=== PATIENT | female | born 1960 | race Caucasian/White ===

== ENCOUNTER → 2017-10-13 10:09 | Outpatient (CLI) | payer OTHER, SELFPAY ==
[2017-10-13 13:32] LABS: Free T4, Direct Thyroxine 0.72 ng/dL (0.78-2.19)
[2017-10-13 13:46] LABS: Thyroid Stimulating Hormone 0.05 uIU/mL (0.47-4.68)
[2017-10-13 16:32] LABS: Calcium 10.3 mg/dL (8.4-10.2)
== END ==
PROVIDERS: Nurse Practitioner Gerontology; Family Provider Naturopath; PCP Naturopath; Visit Provider Naturopath
DX: E03.9 Hypothyroidism, unspecified (principal)
CPT/HCPCS: 36415; 82310; 84146; 84439; 84443; 84481

== ENCOUNTER → 2017-11-11 13:07 | Outpatient (CLI) | payer OTHER, SELFPAY | PROVIDERS: Family Provider Naturopath; PCP Naturopath; Visit Provider Nurse Practitioner Obstetrics & Gynecology | DX: Z01.411 Encounter for gynecological examination (general) (routine) with abnormal findings (principal); N64.3 Galactorrhea not associated with childbirth; N95.1 Menopausal and female climacteric states | CPT/HCPCS: 36415; 83001 ==

== ENCOUNTER → 2018-03-17 09:00 | Outpatient (CLI) | payer OTHER, SELFPAY | PROVIDERS: Family Provider Naturopath; PCP Naturopath | DX: Z23 Encounter for immunization (principal) | CPT/HCPCS: 90471; 90686 ==

== ENCOUNTER → 2018-08-05 09:23 | Outpatient (CLI) | payer OTHER, SELFPAY ==
--- NOTE | 2018-08-05 | DI.US.S_ITS ---
ULTRASOUND OF LEFT BREAST: 08/05/2018 CLINICAL: Nipple discharge, left breast, not bloody. Comparison is made to exams dated: 08/05/2018 mammogram, 07/07/2017 mammogram, 05/15/2016 mammogram, 05/14/2015 mammogram, 05/02/2014 mammogram, and 04/28/2013 mammogram - [facility]. Real-time ultrasound of the left breast was performed on the areas of interest. Conard scale images of the real-time examination were reviewed. IMPRESSION: NEGATIVE There is no sonographic evidence of malignancy. There is no mammographic or sonographic abnormality seen in the left breast to correspond with the non-bloody discharge from the nipple in the sub-areolar depth, however, clinical followup is recommended. A 1 year screening mammogram is recommended. This exam was interpreted at Station ID: [id number]. Electronically Signed By: Agata kunz/:08/05/2018 16:31:43 letter sent: Clinical Evaluation Ultrasound BI-RADS: 1 Negative
--- NOTE | 2018-08-05 | DI.MG.S_ITS ---
BILATERAL DIGITAL DIAGNOSTIC MAMMOGRAM 3D/2D: 08/05/2018 CLINICAL: Bilateral nipple discharge. Comparison is made to exams dated: 07/07/2017 mammogram, 05/15/2016 mammogram, and 05/14/2015 mammogram - [facility]. The tissue of both breasts is heterogeneously dense. This may lower the sensitivity of mammography. No significant masses, calcifications, or other findings are seen in either breast. IMPRESSION: INCOMPLETE: NEEDS ADDITIONAL IMAGING EVALUATION There is no mammographic abnormality seen in either breast to correspond with the non-bloody discharge from the nipple, however, targeted ultrasound of the bilateral breasts is recommended and will be performed immediately following this exam. This exam was interpreted at Station ID: [id number]. NOTE: For mammograms, a report in lay terms will be sent to the patient. Approximately 15% of breast malignancies will not be visualized mammographically. In the management of a palpable breast mass, a negative mammogram must not discourage biopsy of a clinically suspicious lesion. Electronically Signed By: Agata Larry M.D. lk/:08/05/2018 10:13:55 ACR BI-RADS Category 0: Incomplete 3340F
--- NOTE | 2018-08-05 | DI.US.S_ITS ---
ULTRASOUND OF RIGHT BREAST: 08/05/2018 CLINICAL: Nipple discharge, right breast, not bloody. Comparison is made to exams dated: 08/05/2018 mammogram, 07/07/2017 mammogram, 05/15/2016 mammogram, 05/14/2015 mammogram, 05/02/2014 mammogram, and 04/28/2013 mammogram - [facility]. Real-time ultrasound of the right breast was performed on the areas of interest. Conrad scale images of the real-time examination were reviewed. IMPRESSION: NEGATIVE There is no sonographic evidence of malignancy. There is no mammographic or sonographic abnormality seen in the right breast to correspond with the non-bloody discharge from the nipple in the sub-areolar depth, however, clinical followup is recommended. A 1 year screening mammogram is recommended. This exam was interpreted at Station ID: [id number]. Electronically Signed By: Agata kunz/kaitlyn:08/05/2018 16:32:15 letter sent: Clinical Evaluation Ultrasound BI-RADS: 1 Negative
== END ==
PROVIDERS: PCP Naturopath; Visit Provider Naturopath
DX: R92.8 Other abnormal and inconclusive findings on diagnostic imaging of breast (principal); N64.52 Nipple discharge
CPT/HCPCS: 76642; 77066; G0279

== ENCOUNTER → 2019-06-05 10:42 | Outpatient (CLI) | payer OTHER, SELFPAY ==
[2019-06-05 12:49] LABS: Add Manual Diff / Slide Review NO; Basophils Absolute Auto 0 /uL (0-100); Basophils Percent Auto 0.9 % (0-2); Eosinophils Absolute Auto 100 /uL (0-450); Eosinophils Percent Auto 1.8 % (2-4); Hematocrit 40.3 % (36-46); Hemoglobin 14.2 g/dL (12.0-16.0); Lymphocytes Absolute Auto 1600 /uL (1100-4500); Lymphocytes Percent Auto 33.8 % (25-40); Mean Corpuscular HGB Conc 35.2 % (30-36); Mean Corpuscular Volume 93.9 fL (80-100); Monocytes Absolute Auto 500 /uL (0-900); Monocytes Percent Auto 10.2 % (3-14); Neutrophils Absolute Auto 2500 /uL (1500-7000); Neutrophils Percent Auto 53.3 % (50-75); Platelet Count 296 X10^3/uL (150-400); Red Blood Cell Count 4.29 X10^6/uL (4.0-5.2); Red Cell Distribution Width 13.3 % (11.6-14.8); White Blood Cell Count 4.7 X10^3/uL (4.5-11.0)
[2019-06-05 13:46] LABS: Alanine Aminotransferase 16 IU/L (<35); Albumin 4.6 g/dL (3.5-5.0); Albumin Globulin Ratio 1.5 (1.0-2.8); Alkaline Phosphatase 77 U/L (38-126); Aspartate Aminotransferase 24 IU/L (14-36); BUN Creatinine Ratio 21.3 (6-22); Bilirubin Total 0.5 mg/dL (0.2-1.3); Blood Urea Nitrogen 17 mg/dL (7-17); Calcium 10.3 mg/dL (8.4-10.2); Carbon Dioxide 29 mmol/L (22-32); Chloride 101 mmol/L (98-107); Cholesterol 256 mg/dL (140-199); Estimated Glomerular Filt Rate > 60.0 mL/min (>60); Glucose 114 mg/dL (70-100); HDL Cholesterol 59 mg/dL (40-60); HEMOLYSIS < 15 (0-50); LDL Cholesterol Calculated 152 mg/dL (<100); Potassium 4.5 mmol/L (3.4-5.1); Sodium 141 mmol/L (137-145); Total Protein 7.6 g/dL (6.3-8.2); Triglycerides 225 mg/dL (35-150)
[2019-06-05 13:55] LABS: Prolactin 36.9 ng/mL (3.0-18.6)
[2019-06-05 13:56] LABS: Free T3, Triiodothyronine Free 3.42 pg/mL (2.77-5.27)
[2019-06-05 14:10] LABS: Thyroid Stimulating Hormone 0.43 uIU/mL (0.47-4.68)
== END ==
PROVIDERS: PCP Naturopath; Visit Provider Naturopath
DX: Z00.00 Encounter for general adult medical examination without abnormal findings (principal); E03.9 Hypothyroidism, unspecified; E22.1 Hyperprolactinemia; D70.9 Neutropenia, unspecified
CPT/HCPCS: 36415; 80053; 80061; 84146; 84436; 84443; 84481; 85025; 85610

== ENCOUNTER → 2019-06-07 12:01 | Outpatient (CLI) | payer OTHER, SELFPAY ==
--- NOTE | 2019-06-07 | DI.MRI.S_ITS ---
PROCEDURE: MR BRAIN (PITUITARY) WWO CON INDICATIONS: Hyperprolactinemia TECHNIQUE: Noncontrast sagittal and axial FLAIR, axial gradient echo, axial diffusion and ADC through the brain. Thin-slice sagittal and coronal T1 spin echo, coronal T2 fast spin echo through the pituitary. After the administration contrast, optional dynamic coronal T1 spin echo, thin-slice coronal and sagittal T1 spin echo images through the pituitary fossa; axial T1 spin echo with fat saturation through the brain. COMPARISON: None. FINDINGS: Image quality: Excellent. Pituitary Gland: The pituitary gland is normal in size, and the pituitary stalk is not deviated. There is no sign of macroadenoma, and both morphologically and through the phases of dynamic contrast enhancement no identifiable microadenoma within the gland bilaterally could be located. CSF Spaces: Ventricles are normal in size and shape. Basal cisterns are patent. No extra-axial fluid collections. Brain: No intracranial bleeds or mass effects. No abnormal intracranial enhancement. Conrad-white matter interface is intact. Diffusion weighted images demonstrate no acute ischemic insults. Brainstem is normal. Normal intravascular flow voids are present. Skull and face: Calvarial marrow is normal in signal. Orbits appear normal. Sinuses: Sinuses and mastoids are clear. IMPRESSION: Normal pituitary gland study without and with contrast including utilizing high-resolution dynamic contrast enhanced imaging. The patient reports significantly elevated prolactin level, and currently etiology for that abnormality is not yet found Dictated by: Betito Kumar M.D. on 06/07/2019 at 14:46 Approved by: Betito Kumar M.D. on 06/07/2019 at 14:47
== END ==
PROVIDERS: PCP Naturopath; Visit Provider Naturopath
DX: E22.1 Hyperprolactinemia (principal); E88.81 Metabolic syndrome and other insulin resistance
CPT/HCPCS: 36415; 70553; 83036; 83970

== ENCOUNTER → 2019-06-07 13:27 | Outpatient (CLI) | payer OTHER, SELFPAY ==
[2019-06-07 15:15] LABS: Hemoglobin A1C% w Est Avg Glu 5.4 % (4.0-6.0)
[2019-06-10 15:09] LABS: Parathyroid Hormone Int 50 pg/mL (14-64)
== END ==
PROVIDERS: PCP Naturopath; Visit Provider Naturopath
DX: E22.1 Hyperprolactinemia (principal); E88.81 Metabolic syndrome and other insulin resistance
CPT/HCPCS: 36415; 83036; 83970

== ENCOUNTER → 2019-06-26 15:05 | Outpatient (CLI) | payer OTHER, SELFPAY ==
[2019-06-29 12:52] LABS: Mitogen-NIL > 10.00 IU/mL; NIL 0.04 IU/mL; QuantiFERON TB NEGATIVE (Negative); TB1-NIL < 0.01 IU/mL; TB2-NIL < 0.01 IU/mL
== END ==
PROVIDERS: PCP Naturopath; Visit Provider Naturopath
DX: Z11.1 Encounter for screening for respiratory tuberculosis (principal)
CPT/HCPCS: 36415; 86480

== ENCOUNTER 2019-07-29 09:22 | Emergency (ER) | payer OTHER, SELFPAY ==
[2019-07-29 09:25] VITALS: BP 189/97; PULSE 112; RESP 18; TEMP 36.6; O2SAT 98; BMI 25.0
--- NOTE | 2019-07-29 09:43 | ED_ITS ---
HPI - Wound/Laceration General Chief Complaint: Wound/Laceration Stated Complaint: hit head on Time Seen by Provider: 07/29/19 09:42 Source: patient Mode of arrival: Ambulatory Limitations: no limitations History of Present Illness HPI narrative: 59-year-old female nonsmoker without significant contributing medical history presents for evaluation of a laceration above her right eyebrow that was suffered during a mechanical fall 3-4 days ago. She states that she was walking and tripped on an uneven sidewalk. She reports a full recall of the event, denies any loss of consciousness, nausea or vomiting. She denies any focal neurologic findings such as numbness, tingling or weakness. She states that she was hoping that this deep irregular laceration would just get better on its own but when it started swelling a bit she decided to come get seen. Onset (ago): day(s) Location: face Place: outdoors Patient tetanus UTD: Yes Context: accidental Associated symptoms: none Related Data Home Medications Medication Instructions Recorded Confirmed CA PANTOTHENATE/FOLIC ACID/VIT 1 tab PO Q DAY #0 04/08/11 (MULTIVITAMIN) Previous Rx's Medication Instructions Recorded celecoxib 200 mg capsule 200 mg PO DAILY #90 cap 10/05/18 cephalexin [Keflex] 500 mg PO QID 7 Days #28 cap 07/29/19 Review of Systems Constitutional Constitutional: Denies chills, Denies fatigue, Denies fever(s), Denies frequent falls, Denies lethargy and Denies weakness Eyes Eyes: Denies change in vision, Denies eye discharge, Denies irritation and Denies loss of vision ENT Ears, Nose, Mouth, and Throat: Denies change in voice, Denies dizziness, Denies neck pain, Denies sore throat and Denies throat swelling Cardiovascular Cardiovascular: Denies chest pain, Denies irregular heart rhythm, Denies lightheadedness, Denies palpitations, Denies dyspnea, Denies dyspnea on exertion and Denies orthopnea Respiratory Respiratory: Denies cough, Denies dyspnea, Denies dyspnea on exertion and Denies wheezing Gastrointestinal Gastrointestinal: Denies abdominal pain, Denies change in bowel habits, Denies diarrhea, Denies nausea and Denies vomiting Genitourinary Genitourinary: Denies hematuria, Denies flank pain, Denies urinary incontinence and Denies urinary urgency Musculoskeletal Musculoskeletal: Denies back pain, Denies muscle weakness, Denies neck pain, Denies numbness and Denies tingling Integumentary/Breasts Skin/Breast: Denies pruritus, Denies erythema, Denies rash, Reports skin pain, Reports skin swelling and Reports wounds Neurologic Neurologic: Denies behavioral changes, Denies confusion, Denies dizziness, Denies frequent falls, Denies loss of vision, Denies numbness, Denies tingling and Denies weakness Psychiatric Psychiatric: Denies anxiety, Denies behavioral changes, Denies confusion, Denies depression, Denies homicidal ideation and Denies suicidal ideation Endocrine Endocrine: Denies fatigue, Denies flushing and Denies palpitations Hematologic/Lymphatic Hematologic/Lymphatic: Denies easy bruising Allergic/Immunologic Allergic/Immunologic: Denies urticaria, Denies throat swelling and Denies wheezing Patient History Family History Father Hypercholesterolemia CLL (chronic lymphocytic leukemia) Grandfather Heart disease Grandmother Heart disease Mother Age: 74 CLL (chronic lymphocytic leukemia) Uterine fibroid Diabetes mellitus Sister Age: 51 Mental health problem Anxiety Social History Smoking Status: Never smoker Smoking Status: Never smoker alcohol intake frequency: holidays/special occasions only Substance Use Type: does not use Exam Narrative Exam Narrative: GENERAL: [59] year old patient appears stated age. Well- nourished, well-developed patient, in mild distress. GCS 15 HEAD: 3cm irregular laceration, clearly a few days old, no active bleeding. Moderate surrounding swelling without erythema. No depressed skull fracture. EYES: Pupils equal round and reactive. Extraocular motions intact. No scleral icterus. No injection or drainage. ENT: Nose without bleeding, purulent drainage. Throat without erythema, tonsillar hypertrophy or exudate. Airway patent. NECK: Trachea midline. Non tender CARDIOVASCULAR: Regular rate and rhythm without murmurs, gallops, or rubs. RESPIRATORY: Clear to auscultation. Breath sounds equal bilaterally. No wheezes, rales, or rhonchi. GASTROINTESTINAL: Abdomen soft, non-tender, nondistended. EXTREMITIES: No edema or joint tenderness. BACK: Nontender without deformity or crepitance. No flank tenderness. NEURO: AOx3. SKIN: No rash or erythema of visible areas Initial Vital Signs Initial Vital Signs: Vital Signs Temperature 97.9 F 07/29/19 09:25 Pulse Rate 112 H 07/29/19 09:25 Respiratory Rate 18 07/29/19 09:25 Blood Pressure 189/97 H 07/29/19 09:25 Pulse Oximetry 98 07/29/19 09:25 Procedures Laceration Repair Laceration 1: Site: face Side (If applicable): right Size (cm): 3 Description: stellate Depth: simple, single layer Local Anesthetic: lidocaine 1% and with epi Amount of anesthesia used (mL): 3 Pre-repair: wound explored Skin layer closed with: nylon Size (cm): 6-0 Number of sutures: 3 Technique: simple, interrupted Course Orders Ordered: Discontinued Medications Lidocaine/Epinephrine (Xylocaine 1% W/Epi) 1 ml SUBCUT NOW ONE Stop: 07/29/19 09:50 Last Admin: 07/29/19 10:14 Dose: 1 ml Documented by: VIKI Vital Signs Vital signs: Vital Signs - 8 hr 07/29/19 09:25 07/29/19 10:17 Temperature 97.9 F Pulse Rate 112 H 80 Respiratory Rate 18 14 Blood Pressure 189/97 H Blood Pressure [Right Arm] 176/85 H Pulse Oximetry 98 99 MDM - Wound/Laceration MDM Narrative Medical decision making narrative: Though the wound is a few days old I did elect to put in a few loose sutures to help reapproximate the wound and advised close follow-up with her primary care provider. She was placed on antibiotics given the high risk of infection. I did explain to her that in the future laceration repairs are more appropriately cared for as soon as possible and this delay resulted in increased likelihood of infection and/or scarring. She understands. She has been given return precautions and has had her questions answered to her apparent satisfaction Discharge Plan Departure Patient Disposition: Home Clinical Impression: Facial laceration Qualifiers: Encounter type: initial encounter Qualified Code(s): S01.81XA - Laceration without foreign body of other part of head, initial encounter Discharge Date/Time: 07/29/19 10:19 Instructions: DI for Laceration Repair Activity Restrictions/Additional Instructions: Please keep the wound clean and dry to the best of your ability. Please monitor for signs of infection such as redness to the skin or increasing pain. Have the sutures removed by your doctor in about 7 days. If you are unable to get into your doctor, we would be happy to remove the sutures in that same timeframe. Prescriptions: New cephalexin [Keflex] 500 mg capsule 500 mg PO QID 7 Days Qty: 28 RF: 0 No Action CA PANTOTHENATE/FOLIC ACID/VIT (MULTIVITAMIN) 1 tab PO Q DAY Qty: 0 RF: 0 celecoxib [Celebrex] 200 mg capsule 200 mg PO DAILY Qty: 90 RF: 2 Referrals: Renetta Smith ND [Primary Care Provider] -
[2019-07-29] MEDS: LIDOCAINE 1% W/EPI 1 ML SUBCUT (10:14)
[2019-07-29 10:17] VITALS: BP 176/85; PULSE 80; RESP 14; O2SAT 99
--- NOTE | 2019-07-29 10:17 | PC.NURSE ---
+ fall on wednesday w/ laceration. Here for delayed closure.
== END 2019-07-29 10:19 | disposition home or self-care (01) ==
PROVIDERS: Emergency Provider Emergency Medicine; PCP Naturopath
DX: S01.81XA Laceration without foreign body of other part of head, initial encounter (principal); W19.XXXA Unspecified fall, initial encounter
CPT/HCPCS: 12013; 99283

== ENCOUNTER → 2020-01-27 15:06 | Outpatient (CLI) | payer OTHER, SELFPAY ==
--- NOTE | 2020-01-27 15:21 | DI.MG.S_ITS ---
Patient Name: LARRY CARDOZO date: 1960 Sex: F Attending Physician: Luis Indications: Date: 01/27/2020 15:18 At the request of: MU GOMEZ Procedure: MM screening mammo BI BILATERAL DIGITAL SCREENING MAMMOGRAM 3D/2D WITH CAD: 01/27/2020 CLINICAL: Routine screening. Comparison is made to exams dated: 08/05/2018 mammogram, 07/07/2017 mammogram, and 05/15/2016 mammogram - [facility]. The tissue of both breasts is heterogeneously dense. This may lower the sensitivity of mammography. Current study was also evaluated with a Computer Aided Detection (CAD) system. No significant masses, calcifications, or other findings are seen in either breast. There has been no significant interval change. IMPRESSION: NEGATIVE There is no mammographic evidence of malignancy. A 1 year screening mammogram is recommended. This exam was interpreted at Station ID: [id number]. NOTE: For mammograms, a report in lay terms will be sent to the patient. Approximately 15% of breast malignancies will not be visualized mammographically. In the management of a palpable breast mass, a negative mammogram must not discourage biopsy of a clinically suspicious lesion. Electronically Signed By: Alexander sandoval/kaitlyn:01/29/2020 09:27:17 letter sent: Normal Exam ACR BI-RADS Category 1: Negative [id number]
== END ==
PROVIDERS: PCP Naturopath; Referring Provider Naturopath; Visit Provider Naturopath
DX: Z12.31 Encounter for screening mammogram for malignant neoplasm of breast (principal)
CPT/HCPCS: 77063; 77067

== ENCOUNTER 2020-11-09 14:28 | Emergency (ER) | payer OTHER, SELFPAY ==
[2020-11-09] VITALS (8 sets, daily range): BP systolic 126–155; BP diastolic 58–93; PULSE 83–115; RESP 13–36; O2SAT 95–99; BMI 28.8
--- NOTE | 2020-11-09 14:39 | DI.RAD.S_ITS ---
PROCEDURE: XR CHEST 1V INDICATIONS: chest pain TECHNIQUE: One view of the chest was acquired. COMPARISON: [facility], , XR CXR 2 VIEW, 06/04/2005, 8:37. FINDINGS: Surgical changes and devices: None. Lungs and pleura: Lungs are clear. No pleural effusions or pneumothorax. Mediastinum: Mediastinal contours appear normal. Heart size is normal. Bones and chest wall: No suspicious bony lesions. Overlying soft tissues appear unremarkable. IMPRESSION: No acute cardiopulmonary disease. Dictated by: Becca Shelby M.D. on 11/09/2020 at 14:55 Approved by: Becca Shelby M.D. on 11/09/2020 at 14:56
[2020-11-09 15:00] LABS: Add Manual Diff / Slide Review NO; Basophils Absolute Auto 0 /uL (0-100); Basophils Percent Auto 0.4 % (0-2); Eosinophils Absolute Auto 100 /uL (0-450); Eosinophils Percent Auto 0.8 % (2-4); Hematocrit 44.4 % (36-46); Hemoglobin 15.3 g/dL (12.0-16.0); Lymphocytes Absolute Auto 2900 /uL (1100-4500); Lymphocytes Percent Auto 39.6 % (25-40); Mean Corpuscular HGB Conc 34.5 % (30-36); Mean Corpuscular Hemoglobin 34.1 PG (26-34); Mean Corpuscular Volume 98.9 fL (80-100); Monocytes Absolute Auto 600 /uL (0-900); Monocytes Percent Auto 8.5 % (3-14); Neutrophils Absolute Auto 3700 /uL (1500-7000); Neutrophils Percent Auto 50.7 % (50-75); Platelet Count 243 X10^3/uL (150-400); Red Cell Distribution Width 14.2 % (11.6-14.8); White Blood Cell Count 7.3 X10^3/uL (4.5-11.0)
[2020-11-09 15:05] LABS: Alanine Aminotransferase 72 IU/L (<35); Albumin 4.6 g/dL (3.5-5.0); Albumin Globulin Ratio 1.4 (1.0-2.8); Alkaline Phosphatase 85 U/L (38-126); Aspartate Aminotransferase 101 IU/L (14-36); BUN Creatinine Ratio 11.1 (6-22); Bilirubin Total 0.5 mg/dL (0.2-1.3); Blood Urea Nitrogen 8 mg/dL (7-17); Calcium 9.8 mg/dL (8.4-10.2); Carbon Dioxide 27 mmol/L (22-32); Chloride 99 mmol/L (98-107); Creatine Kinase 84 U/L (30-135); Estimated Glomerular Filt Rate > 60.0 mL/min (>60); Globulin 3.3 g/dL (1.7-4.1); Glucose 153 mg/dL (70-100); HEMOLYSIS < 15 (0-50); Lipase 485 U/L (23-300); Magnesium 1.8 mg/dL (1.6-2.3); Potassium 3.9 mmol/L (3.4-5.1); Sodium 140 mmol/L (137-145); Total Protein 7.9 g/dL (6.3-8.2)
[2020-11-09 15:08] LABS: COVID19 -Nasal RAPID Negative (Negative)
[2020-11-09 15:10] LABS: Lactate (Lactic Acid) 4.5 mmol/L (0.7-2.1)
--- NOTE | 2020-11-09 15:12 | ED.SOB ---
HPI - SOB/Dyspnea General Chief Complaint: Shortness of Breath/Dyspnea Stated Complaint: SHORT OF BREATH Time Seen by Provider: 11/09/20 14:51 Source: patient Mode of arrival: Ambulatory Limitations: no limitations History of Present Illness HPI Narrative: 52-year-old female with history of asthma presents with a chief complaint of increasing shortness of breath for the past month. Patient denies any chest pain, recent travel, history of cancer or blood clot. She states that she feels like she gets more short of breath only at night but not with exertion or much throughout the course of the day. She is not dizzy nor weak or lightheaded. Additionally, she states that she often times has some epigastric discomfort and will vomit in the morning and then feel much better for the remainder of the day. She has had no fever or chills. She denies any change in bowel habits nor any urinary complaints such as dysuria, frequency or urgency. Related Data Home Medications Medication Instructions Recorded Confirmed CA PANTOTHENATE/FOLIC ACID/VIT 1 tab PO Q DAY #0 04/08/11 (MULTIVITAMIN) Previous Rx's Medication Instructions Recorded celecoxib 200 mg capsule 200 mg PO DAILY #90 cap 10/05/18 ondansetron 4 mg PO TID-QID PRN #10 tab 11/09/20 pantoprazole [Protonix] 40 mg PO DAILY #30 tab 11/09/20 Allergies Allergy/AdvReac Type Severity Reaction Status Date / Time No Known Drug Allergies Allergy Verified 11/09/20 14:38 Review of Systems Constitutional Constitutional: Denies chills, Denies fatigue, Denies fever(s), Denies frequent falls, Denies lethargy and Denies weakness Eyes Eyes: Denies change in vision, Denies eye discharge, Denies irritation and Denies loss of vision ENT Ears, Nose, Mouth, and Throat: Denies change in voice, Denies dizziness, Denies neck pain, Denies sore throat and Denies throat swelling Cardiovascular Cardiovascular: Denies chest pain, Denies irregular heart rhythm, Denies lightheadedness, Denies palpitations, Reports dyspnea, Denies dyspnea on exertion and Denies orthopnea Respiratory Respiratory: Denies cough, Reports dyspnea, Denies dyspnea on exertion and Denies wheezing Gastrointestinal Gastrointestinal: Reports abdominal pain, Denies change in bowel habits, Denies diarrhea, Reports nausea and Reports vomiting Musculoskeletal Musculoskeletal: Denies neck pain and Denies numbness Integumentary/Breasts Skin/Breast: Denies pruritus, Denies erythema, Denies rash and Denies wounds Neurologic Neurologic: Denies behavioral changes, Denies confusion, Denies dizziness, Denies frequent falls, Denies loss of vision, Denies numbness and Denies weakness Psychiatric Psychiatric: Denies anxiety, Denies behavioral changes, Denies confusion, Denies depression, Denies homicidal ideation and Denies suicidal ideation Endocrine Endocrine: Denies fatigue, Denies flushing and Denies palpitations Hematologic/Lymphatic Hematologic/Lymphatic: Denies easy bruising Allergic/Immunologic Allergic/Immunologic: Denies urticaria, Denies throat swelling and Denies wheezing Patient History Family History Father Hypercholesterolemia CLL (chronic lymphocytic leukemia) Grandfather Heart disease Grandmother Heart disease Mother Age: 75 CLL (chronic lymphocytic leukemia) Uterine fibroid Diabetes mellitus Sister Age: 52 Mental health problem Anxiety Social History Smoking Status: Never smoker Smoking Status: Never smoker alcohol intake frequency: holidays/special occasions only Substance Use Type: does not use Exam Narrative Exam Narrative: GENERAL: [60] year old patient appears stated age. Well-developed patient, in mild distress. HEAD: Atraumatic. Normocephalic. EYES: Pupils equal round and reactive. Extraocular motions intact. No scleral icterus. No injection or drainage. ENT: Nose without bleeding, purulent drainage. Throat without erythema, tonsillar hypertrophy or exudate. Airway patent. NECK: Trachea midline. Non tender CARDIOVASCULAR: Regular rate and rhythm without murmurs, gallops, or rubs. RESPIRATORY: Clear to auscultation. Breath sounds equal bilaterally. No wheezes, rales, or rhonchi. GASTROINTESTINAL: Abdomen soft, non-tender, nondistended. EXTREMITIES: No edema or joint tenderness. BACK: Nontender without deformity or crepitance. No flank tenderness. NEURO: AOx3. SKIN: No rash or erythema of visible areas Initial Vital Signs Initial Vital Signs: Vital Signs Pulse Rate 110 H 11/09/20 14:36 Blood Pressure 126/89 11/09/20 14:36 Pulse Oximetry 99 11/09/20 14:36 Course Orders Ordered: ED Orders 11/09/20 14:39 XR chest 1V Stat EKG-12 Lead Stat 11/09/20 14:45 COVID19 -Nasal swab/Pre-Proc Stat Complete Blood Count AUTO DIFF Stat Comprehensive Metabolic Panel Stat Lactate (Lactic Acid) Stat Lipase Stat Magnesium Stat Troponin & CK Cardiac Panel Stat 11/09/20 15:10 D Dimer Stat Partial Thromboplastin Time Stat Prothrombin Time INR Stat 11/09/20 15:20 CT abdomen pelvis w con Stat CT angio chest PE protocol Stat Vital Signs Vital signs: Vital Signs - 8 hr 11/09/20 14:36 11/09/20 14:38 11/09/20 14:43 Pulse Rate 110 H 111 H 102 H Respiratory Rate 36 H 22 Blood Pressure 126/89 126/89 151/93 H Pulse Oximetry 99 99 99 11/09/20 15:04 11/09/20 15:37 11/09/20 15:38 Pulse Rate 115 H 86 83 Respiratory Rate 13 Blood Pressure 126/68 Pulse Oximetry 95 97 98 11/09/20 15:51 11/09/20 16:00 Pulse Rate 87 83 Respiratory Rate 17 19 Blood Pressure 155/87 H 126/58 L Pulse Oximetry 98 97 MDM - SOB/Dyspnea Lab Data Result diagrams: 11/09/20 14:45 11/09/20 14:45 Labs: Lab Results 11/09/20 11/09/20 11/09/20 Range/Units 14:45 14:45 14:45 WBC 7.3 (4.5-11.0) X10^3/uL RBC 4.50 (4.0-5.2) X10^6/uL Hgb 15.3 (12.0-16.0) g/dL Hct 44.4 (36-46) % MCV 98.9 (80-100) fL MCH 34.1 H (26-34) PG MCHC 34.5 (30-36) % RDW 14.2 (11.6-14.8) % Plt Count 243 (150-400) X10^3/uL Neut % (Auto) 50.7 (50-75) % Lymph % (Auto) 39.6 (25-40) % [place] % (Auto) 8.5 (3-14) % Eos % (Auto) 0.8 L (2-4) % Baso % (Auto) 0.4 (0-2) % Neut # (Auto) 3700 (5739-6184) /uL Lymph # (Auto) 2900 (4103-2823) /uL [place] # (Auto) 600 (0-900) /uL Eos # (Auto) 100 (0-450) /uL Baso # (Auto) 0 (0-100) /uL PT (10.1-12.7) SECONDS INR (0.9-1.3) APTT (26.4-36.2) SECONDS D-Dimer (<230) ng/mL Sodium 140 (137-145) mmol/L Potassium 3.9 (3.4-5.1) mmol/L Chloride 99 (98-107) mmol/L Carbon Dioxide 27 (22-32) mmol/L BUN 8 (7-17) mg/dL Creatinine 0.72 (0.52-1.04) mg/dL Estimated GFR > 60.0 (>60) mL/min BUN/Creatinine Ratio 11.1 (6-22) Glucose 153 H (70-100) mg/dL Lactate 4.5 H* (0.7-2.1) mmol/L Calcium 9.8 (8.4-10.2) mg/dL Magnesium 1.8 (1.6-2.3) mg/dL Total Bilirubin 0.5 (0.2-1.3) mg/dL AST 101 H (14-36) IU/L ALT 72 H (<35) IU/L Alkaline Phosphatase 85 (38-126) U/L Total Creatine Kinase 84 (30-135) U/L CK-MB (CK-2) TNP CK-MB (CK-2) Rel Index TNP Troponin I < 0.012 (0.01-0.034) ng/mL Total Protein 7.9 (6.3-8.2) g/dL Albumin 4.6 (3.5-5.0) g/dL Globulin 3.3 (1.7-4.1) g/dL Albumin/Globulin Ratio 1.4 (1.0-2.8) Lipase 485 H (23-300) U/L SARS-CoV-2 (PCR) (Negative) 11/09/20 11/09/20 Range/Units 14:45 15:10 WBC (4.5-11.0) X10^3/uL RBC (4.0-5.2) X10^6/uL Hgb (12.0-16.0) g/dL Hct (36-46) % MCV (80-100) fL MCH (26-34) PG MCHC (30-36) % RDW (11.6-14.8) % Plt Count (150-400) X10^3/uL Neut % (Auto) (50-75) % Lymph % (Auto) (25-40) % [place] % (Auto) (3-14) % Eos % (Auto) (2-4) % Baso % (Auto) (0-2) % Neut # (Auto) (0058-9382) /uL Lymph # (Auto) (4131-8971) /uL [place] # (Auto) (0-900) /uL Eos # (Auto) (0-450) /uL Baso # (Auto) (0-100) /uL PT 10.8 (10.1-12.7) SECONDS INR 1.0 (0.9-1.3) APTT 32 (26.4-36.2) SECONDS D-Dimer 269 H (<230) ng/mL Sodium (137-145) mmol/L Potassium (3.4-5.1) mmol/L Chloride (98-107) mmol/L Carbon Dioxide (22-32) mmol/L BUN (7-17) mg/dL Creatinine (0.52-1.04) mg/dL Estimated GFR (>60) mL/min BUN/Creatinine Ratio (6-22) Glucose (70-100) mg/dL Lactate (0.7-2.1) mmol/L Calcium (8.4-10.2) mg/dL Magnesium (1.6-2.3) mg/dL Total Bilirubin (0.2-1.3) mg/dL AST (14-36) IU/L ALT (<35) IU/L Alkaline Phosphatase (38-126) U/L Total Creatine Kinase (30-135) U/L CK-MB (CK-2) CK-MB (CK-2) Rel Index Troponin I (0.01-0.034) ng/mL Total Protein (6.3-8.2) g/dL Albumin (3.5-5.0) g/dL Globulin (1.7-4.1) g/dL Albumin/Globulin Ratio (1.0-2.8) Lipase (23-300) U/L SARS-CoV-2 (PCR) Negative (Negative) Imaging Data CT scan - chest: Radiologist's Impression: [place] [id number] [place] [address] [id number] Scan ReportSigned Patient: [place] SMR#: [id number]: 1960Acct:[id number]/Sex: 60 / FDate of Service: 11/09/20Loc: EDAccession Number: [id number] Procedure: CT angio chest PE protocol Ordering Provider: Neal Lowery D.O. PROCEDURE: CT ANGIO CHEST PE PROTOCOL INDICATIONS: short of breath, tachycardia, tachypnea TECHNIQUE: After the administration of intravenous contrast, 2 mm thick sections acquired from the pulmonary apices to the posterior costophrenic angles. 3-dimensional maximum intensity projection (MIP) coronal and sagittal reformats were then acquired through the thorax. For radiation dose reduction, the following was used: automated exposure control, adjustment of mA and/or kV according to patient size. COMPARISON: [facility], CR, XR CHEST 1V, 11/09/2020, 14:45. FINDINGS: Image quality: Excellent. Pulmonary arteries: Pulmonary arteries are normal in size, and demonstrate no intraluminal filling defects to suggest central pulmonary embolism. Lungs and pleura: There is right hemidiaphragm elevation. Right basilar opacity is most likely atelectasis. There is a 3 mm calcified nodule in the right upper lobe compatible with an old granuloma. No pleural effusions or pneumothorax. Central and peripheral airways are patent. Mediastinum: Heart size is normal, without pericardial effusion. No mediastinal or hilar adenopathy. Thoracic aorta is normal in caliber and enhancement. Esophagus is normal in caliber. Small hiatal hernia. hiatal hernia. Bones and chest wall: No suspicious bony lesions. Ribs and thoracic spine appear intact throughout. Thyroid gland is normal. No axillary or supraclavicular adenopathy. Abdomen: There is hepatic steatosis. A 9 mm low-density nodule is seen in segment 4. Visualized upper abdominal solid organs appear normal in the early arterial phase of enhancement. IMPRESSION: 1. No evidence for pulmonary embolism. 2. Right hemidiaphragm elevation and right basilar atelectasis. 3. A 3 mm calcified granuloma in right upper lobe. Dictated by: Becca Shelby M.D. on 11/09/2020 at 16:06 Approved by: Becca Sehlby M.D. on 11/09/2020 at 16:11 CT scan - abdomen/pelvis: Radiologist's Impression: Chart Viewer Diagnostics DATE TYPE STATUS REF RANGE/AUTHOR Hx Today 15:20 Afsaneh,Shivam Today 15:20 AfsanehShivam Today 14:39 Shivam Shelby 01/27/20 15:21 Alexander Haque 06/07/19 00:00 JoséBetito 08/05/18 00:00 Kiviat,Agata 08/05/18 00:00 Kiviat,Agata 08/05/18 00:00 Kiviat,Agata Shama Valdez 60, F007/09/1960 REG ER, Main ED R12 172.72cm 86.183kg BMI: 28.9kg/m? Shortness of Breath/Dyspnea Search Chart No Data to Display NonFormulary Not Included in Conflicts ONSET 08/17/13 Today 16:00 Shama Valdez 60 F [address] Scan ReportSigned Patient: Shama Valdez [facility]#: [id number]: 1960Acct:[id number]/Sex: 60 / FDate of Service: 11/09/20Loc: EDAccession Number: [id number] Procedure: CT abdomen pelvis w con Ordering Provider: Neal Lowery D.O. PROCEDURE: CT ABDOMEN PELVIS W CON INDICATIONS: abdominal pain, persistent vomiting TECHNIQUE: After the administration of intravenous contrast, axial sections acquired from the lung bases to the pubic symphysis. Coronal and sagittal reformats were performed. For radiation dose reduction, the following was used: automated exposure control, adjustment of mA and/or kV according to patient size. COMPARISON: [facility], CT, KIDNEY/ URETER/BLADDER, 04/17/2013, 11:46. [facility], CT, CT ANGIO CHEST PE PROTOCOL, 11/09/2020, 15:26. FINDINGS: Image quality: Excellent. Lung bases: Right hemidiaphragm elevation and right basilar atelectasis. Unremarkable. Small hiatal hernia. Mild concentric thickening of the distal esophagus. Heart: No significant findings. ABDOMEN: Liver: There is hepatic steatosis. Small low-density nodules in liver are most likely hepatic cysts. Gallbladder: Gallbladder is normal. Biliary ducts: Unremarkable. Pancreas: Unremarkable. Spleen: Unremarkable. Adrenal Glands: Unremarkable. Kidneys and Ureters: Unremarkable. Stomach and Bowel: There is gastric antral thickening. Small bowel loops, and colon are unremarkable. Normal appendix. Peritoneum: No abnormal intraperitoneal fluid. No free air. Ventral Wall: No hernias. Abdominal Nodes: No retroperitoneal or mesenteric adenopathy by size criteria. Vessels: Aorta and inferior vena cava are normal in size. PELVIS: Pelvic Organs: Unremarkable. Uterus is normal. Ovaries are unremarkable. No free fluid in pelvis. Bladder: Unremarkable. Pelvic Nodes: No enlarged lymph nodes. Miscellaneous: No hernias are seen. Bones: Unremarkable. Scoliosis and degenerative changes in lumbar spine. Severe degenerative disc disease at L2-L3, moderate degenerative disease at L1-L2, L3-L4 and L4-L5. IMPRESSION: 1. Gastric antral thickening may be secondary to gastritis or peptic ulcer disease. 2. Small hiatal hernia. There is mild concentric thickening of the distal esophagus, probably related to gastroesophageal reflux. 3. Hepatic steatosis. Multiple indeterminate hepatic hypodensities are most likely liver cysts. 4. Normal appendix. 5. Right hemidiaphragm elevation and right basilar atelectasis. 6. Scoliosis and degenerative changes in lumbar spine. Dictated by: Becca Shelby M.D. on 11/09/2020 at 16:11 Approved by: Becca Shelby M.D. on 11/09/2020 at 16:16 [facility] Narrative Medical decision making narrative: Multiple etiologies for patient's symptoms considered including: [Pneumonia versus asthma exacerbation versus pulmonary embolism versus other] Patient's symptoms improved over duration of stay with above-stated therapies. Findings and discharge diagnosis discussed with patient/family followed by verbalization of understanding Return precautions discussed with patient/family whom verbalize understanding. Discharge Plan Departure Patient Disposition: Home Clinical Impression: Chronic dyspnea Gastritis Qualifiers: Gastritis type: unspecified gastritis Chronicity: acute Gastritis bleeding: without bleeding Qualified Code(s): K29.00 - Acute gastritis without bleeding Instructions: DI for Gastritis, DI for Shortness of Breath Activity Restrictions/Additional Instructions: *You have been diagnosed with [abdominal pain and vomiting likely due to gastritis. Labs and imaging are very reassuring. No evidence of pneumonia or blood clot.] *What to do: *Please continue to take your regular medications as directed. [ x] New medication prescriptions sent to your pharmacy: [ ] [ ] New medication written as a paper prescription [ ] No new medications given *Please follow up with your primary care provider in 2-3 days, call for an appointment. Let them know you were seen in the Emergency Department and that we ask that you be seen in follow up. We will electronically transmit a record of today's note if your PCP is in our system *If you do not have a primary care provider please contact the [facility] Resource line at [phone]. They will ask some questions about your medical history and help get you set up with a doctor in the community. *Return to Emergency Department if you should have any new, worsening or concerning symptoms, such as [fever greater than 101 F, shaking chills, worsening pain, persistent vomiting or other bothersome symptoms] Prescriptions: New pantoprazole [Protonix] 40 mg tablet,delayed release (DR/EC) 40 mg PO DAILY Qty: 30 RF: 0 ondansetron 4 mg tablet,disintegrating 4 mg PO TID-QID PRN (Reason: nausea and vomiting) Qty: 10 RF: 0 No Action CA PANTOTHENATE/FOLIC ACID/VIT (MULTIVITAMIN) 1 tab PO Q DAY Qty: 0 RF: 0 celecoxib [Celebrex] 200 mg capsule 200 mg PO DAILY Qty: 90 RF: 2 Referrals: Renetta Smith ND [Primary Care Provider] -
[2020-11-09 15:16] LABS: Troponin I < 0.012 ng/mL (0.01-0.034)
--- NOTE | 2020-11-09 15:20 | DI.CT.S_ITS ---
PROCEDURE: CT ABDOMEN PELVIS W CON INDICATIONS: abdominal pain, persistent vomiting TECHNIQUE: After the administration of intravenous contrast, axial sections acquired from the lung bases to the pubic symphysis. Coronal and sagittal reformats were performed. For radiation dose reduction, the following was used: automated exposure control, adjustment of mA and/or kV according to patient size. COMPARISON: [facility], CT, KIDNEY/ URETER/BLADDER, 04/17/2013, 11:46. [facility], CT, CT ANGIO CHEST PE PROTOCOL, 11/09/2020, 15:26. FINDINGS: Image quality: Excellent. Lung bases: Right hemidiaphragm elevation and right basilar atelectasis. Unremarkable. Small hiatal hernia. Mild concentric thickening of the distal esophagus. Heart: No significant findings. ABDOMEN: Liver: There is hepatic steatosis. Small low-density nodules in liver are most likely hepatic cysts. Gallbladder: Gallbladder is normal. Biliary ducts: Unremarkable. Pancreas: Unremarkable. Spleen: Unremarkable. Adrenal Glands: Unremarkable. Kidneys and Ureters: Unremarkable. Stomach and Bowel: There is gastric antral thickening. Small bowel loops, and colon are unremarkable. Normal appendix. Peritoneum: No abnormal intraperitoneal fluid. No free air. Ventral Wall: No hernias. Abdominal Nodes: No retroperitoneal or mesenteric adenopathy by size criteria. Vessels: Aorta and inferior vena cava are normal in size. PELVIS: Pelvic Organs: Unremarkable. Uterus is normal. Ovaries are unremarkable. No free fluid in pelvis. Bladder: Unremarkable. Pelvic Nodes: No enlarged lymph nodes. Miscellaneous: No hernias are seen. Bones: Unremarkable. Scoliosis and degenerative changes in lumbar spine. Severe degenerative disc disease at L2-L3, moderate degenerative disease at L1-L2, L3-L4 and L4-L5. IMPRESSION: 1. Gastric antral thickening may be secondary to gastritis or peptic ulcer disease. 2. Small hiatal hernia. There is mild concentric thickening of the distal esophagus, probably related to gastroesophageal reflux. 3. Hepatic steatosis. Multiple indeterminate hepatic hypodensities are most likely liver cysts. 4. Normal appendix. 5. Right hemidiaphragm elevation and right basilar atelectasis. 6. Scoliosis and degenerative changes in lumbar spine. Dictated by: Becca Shelby M.D. on 11/09/2020 at 16:11 Approved by: Becca Shelby M.D. on 11/09/2020 at 16:16
--- NOTE | 2020-11-09 15:20 | DI.CT.S_ITS ---
PROCEDURE: CT ANGIO CHEST PE PROTOCOL INDICATIONS: short of breath, tachycardia, tachypnea TECHNIQUE: After the administration of intravenous contrast, 2 mm thick sections acquired from the pulmonary apices to the posterior costophrenic angles. 3-dimensional maximum intensity projection (MIP) coronal and sagittal reformats were then acquired through the thorax. For radiation dose reduction, the following was used: automated exposure control, adjustment of mA and/or kV according to patient size. COMPARISON: [facility], CR, XR CHEST 1V, 11/09/2020, 14:45. FINDINGS: Image quality: Excellent. Pulmonary arteries: Pulmonary arteries are normal in size, and demonstrate no intraluminal filling defects to suggest central pulmonary embolism. Lungs and pleura: There is right hemidiaphragm elevation. Right basilar opacity is most likely atelectasis. There is a 3 mm calcified nodule in the right upper lobe compatible with an old granuloma. No pleural effusions or pneumothorax. Central and peripheral airways are patent. Mediastinum: Heart size is normal, without pericardial effusion. No mediastinal or hilar adenopathy. Thoracic aorta is normal in caliber and enhancement. Esophagus is normal in caliber. Small hiatal hernia. hiatal hernia. Bones and chest wall: No suspicious bony lesions. Ribs and thoracic spine appear intact throughout. Thyroid gland is normal. No axillary or supraclavicular adenopathy. Abdomen: There is hepatic steatosis. A 9 mm low-density nodule is seen in segment 4. Visualized upper abdominal solid organs appear normal in the early arterial phase of enhancement. IMPRESSION: 1. No evidence for pulmonary embolism. 2. Right hemidiaphragm elevation and right basilar atelectasis. 3. A 3 mm calcified granuloma in right upper lobe. Dictated by: Becca Shelby M.D. on 11/09/2020 at 16:06 Approved by: Becca Shelby M.D. on 11/09/2020 at 16:11
[2020-11-09 15:24] LABS: Prothrombin Time 10.8 SECONDS (10.1-12.7)
[2020-11-09 15:26] LABS: PTT Partial Thromboplastin Tim 32 SECONDS (26.4-36.2)
[2020-11-09 15:27] LABS: D Dimer 269 ng/mL (<230)
[2020-11-09 16:49] LABS: Reflexed Lactate in 2 Hours Y
== END 2020-11-09 16:45 | disposition home or self-care (01) ==
PROVIDERS: Emergency Provider Emergency Medicine; PCP Naturopath
DX: R06.09 Other forms of dyspnea (principal); K29.00 Acute gastritis without bleeding; R00.0 Tachycardia, unspecified; R07.9 Chest pain, unspecified; R11.2 Nausea with vomiting, unspecified; Z20.822 Contact with and (suspected) exposure to COVID-19
CPT/HCPCS: 36415; 71045; 71275; 74177; 80053; 82550; 83605; 83690; 83735; 84484; 85025; 85379; 85610; 85730; 87635; 93005; 99284; 99285; C9803; Q9967

== ENCOUNTER 2021-02-10 17:20 | Emergency (ER) | payer OTHER, SELFPAY ==
[2021-02-10 17:25] VITALS: BP 107/68; PULSE 89; RESP 30; TEMP 37.1; O2SAT 99; BMI 28.8
[2021-02-10 18:02] LABS: COVID19 -Nasal RAPID Negative (Negative)
== END 2021-02-10 18:12 | disposition left against medical advice (07) ==
PROVIDERS: Emergency Provider Emergency Medicine; PCP Naturopath
DX: R06.02 Shortness of breath (principal); Z20.822 Contact with and (suspected) exposure to COVID-19
CPT/HCPCS: 87635; 99281; C9803

== ENCOUNTER → 2022-02-17 15:06 | Outpatient (CLI) | payer OTHER, SELFPAY ==
--- NOTE | 2022-02-17 | DI.MG.S_ITS ---
BILATERAL DIGITAL SCREENING MAMMOGRAM 3D/2D WITH CAD: 02/17/2022 CLINICAL: Routine screening. Comparison is made to exams dated: 01/14/2021 mammogram - Outside facility, 01/27/2020 mammogram, 08/05/2018 mammogram, and 07/07/2017 mammogram - [facility]. Both breasts are heterogeneously dense, which may obscure small masses (category c / 51-75% glandular tissue). Current study was also evaluated with a Computer Aided Detection (CAD) system. There is a focal asymmetry with a spiculated margin in the left breast at 2 o'clock middle depth. No other significant masses, calcifications, or other findings are seen in either breast. IMPRESSION: INCOMPLETE: NEEDS ADDITIONAL IMAGING EVALUATION The focal asymmetry in the left breast is indeterminate. Additional views with possible ultrasound are recommended. Based on the Tyrer Cuzick model (a risk assessment model) the patient's lifetime risk is 11.3% and her 10 year risk is 4.4%. According to the ACR, ACS, and NCCN guidelines, an annual breast MRI exam along with mammogram is recommended if the patient's lifetime risk is 20% or greater. This exam was interpreted at Station ID: [id number]. NOTE: For mammograms, a report in lay terms will be sent to the patient. Approximately 15% of breast malignancies will not be visualized mammographically. In the management of a palpable breast mass, a negative mammogram must not discourage biopsy of a clinically suspicious lesion. Electronically Signed By: Aniceto Stockton M.D. [facility] [place]/:02/18/2022 09:14:19 letter sent: Additional Imaging Needed ACR BI-RADS Category 0: Incomplete [id number]
== END ==
PROVIDERS: PCP Internal Medicine; Referring Provider Internal Medicine; Visit Provider Internal Medicine
DX: Z12.31 Encounter for screening mammogram for malignant neoplasm of breast (principal); N64.89 Other specified disorders of breast
CPT/HCPCS: 77063; 77067

== ENCOUNTER → 2022-03-04 08:50 | Outpatient (CLI) | payer OTHER, SELFPAY ==
--- NOTE | 2022-03-04 | DI.US.S_ITS ---
LIMITED ULTRASOUND OF LEFT BREAST: 03/04/2022 CLINICAL: Patient returns today to evaluate an asymmetry in the left breast. Comparison is made to exams dated: 03/04/2022 mammogram, 02/17/2022 mammogram - [facility], 01/14/2021 mammogram - Outside facility, 01/27/2020 mammogram, 08/05/2018 ultrasound, and 08/05/2018 mammogram - [facility]. Color flow, real-time, and Doppler ultrasound of the left breast 1-3 o'clock region were performed. Conrad scale images of the real-time examination were reviewed. There is a 1.9 cm x 1.6 cm taller than wide mass with an angular margin in the left breast at 2 o'clock middle depth. This mass is hypoechoic with posterior acoustic shadowing. There is associated architectural distortion. IMPRESSION: SUSPICIOUS OF MALIGNANCY The 1.9 cm x 1.6 cm taller than wide mass in the left breast is suspicious of malignancy. An ultrasound guided biopsy is recommended. This exam was interpreted at Station ID: [id number]. Electronically Signed By: Juan Pablo Chahal M.D., jr/kaitlyn:03/04/2022 13:50:25 letter sent: Biopsy Required Ultrasound BI-RADS: 4 Suspicious for malignancy
--- NOTE | 2022-03-04 | DI.MG.S_ITS ---
UNILATERAL LEFT DIGITAL DIAGNOSTIC MAMMOGRAM 3D/2D WITH ADDITIONAL VIEWS: 03/04/2022 CLINICAL: Additional evaluation requested from prior study. Comparison is made to exams dated: 02/17/2022 mammogram - [facility], 01/14/2021 mammogram - Outside [facility], and 01/27/2020 mammogram - [facility]. The left breast is heterogeneously dense, which may obscure small masses (category c / 51-75% glandular tissue). There is a mass in the left breast at 2 o'clock middle depth. There is architectural distortion associated with the mass. No other significant masses or calcifications are seen in the breast. IMPRESSION: INCOMPLETE: NEEDS ADDITIONAL IMAGING EVALUATION The mass in the left breast is indeterminate. An ultrasound is recommended. Based on the Tyrer Cuzick model (a risk assessment model) the patient's lifetime risk is 11.3% and her 10 year risk is 4.4%. According to the ACR, ACS, and NCCN guidelines, an annual breast MRI exam along with mammogram is recommended if the patient's lifetime risk is 20% or greater. This exam was interpreted at Station ID: [id number]. NOTE: For mammograms, a report in lay terms will be sent to the patient. Approximately 15% of breast malignancies will not be visualized mammographically. In the management of a palpable breast mass, a negative mammogram must not discourage biopsy of a clinically suspicious lesion. Electronically Signed By: Juan Pablo Chahal M.D., jr/kaitlyn:03/04/2022 13:44:11 ACR BI-RADS Category 0: Incomplete [id number]
== END ==
PROVIDERS: PCP Internal Medicine; Referring Provider Internal Medicine; Visit Provider Internal Medicine
DX: N63.21 Unspecified lump in the left breast, upper outer quadrant (principal)
CPT/HCPCS: 76642; 77065; G0279

== ENCOUNTER → 2022-03-16 | Outpatient (CLI) | payer OTHER, SELFPAY ==
--- NOTE | 2022-03-16 | PATH_ITS ---
[facility] Accession Number: [id number] . 01 Material submitted: . breast - LEFT BREAST 1:00 4CMFN . 01 Diagnosis: A. Left Breast, 1 o'clock, 4 cm from the Nipple, Biopsy: Invasive (lobular) carcinoma, grade 2 of 3 (Cullen combined histologic grade, total score 6/9), with the following features: 1. Tubular differentiation: Intermediate. (2/3) 2. Mitotic rate: Low. (1/3) 3. Tubular differentiation: None. (3/3) 4. Size of invasive carcinoma: Present on multiple cores, single largest dimension at least 7 mm in this sample. 5. Ductal carcinoma in situ: Absent. 6. Calcifications: Absent. 7. Lymphatic invasion: Absent in this specimen. 8. Prognostic markers: - Estrogen receptor status: Positive (more than 95% tumor cells staining, staining intensity: Strong). - Progesterone receptor status: Positive (more than 95% tumor cells staining, staining intensity: Strong). - HER2 status: Negative for protein overexpression by immunohistochemistry (0). [facility] 03/19/2022 1456 Local . 01 Electronically signed: Haylee Manning MD, Pathologist NPI- [id number] . 01 Gross description: . Received one formalin-filled container, labeled with the patient's name and LT 1 o'clock 4 cm FN. The specimen is received with a plastic filter in container, sample loose in container and consists of four fragments of locke soft tissue which range in size from 0.3 x 0.2 x 0.2 cm to 1.3 x 0.3 x 0.2 cm. All fragments are totally submitted in one cassette. Possible collection time per requisition: 03/16/22 at 1403. Total fixation time: Approximately 13 hours. ([id number]) /FRR 03/17/2022 0248 Local . 01 Microscopic: . E-Cadherin immunostain is performed on block A1 in order to evaluate for lobular phenotype with appropriately staining external controls. The invasive carcinoma demonstrates loss of e-cadherin, in support of lobular neoplasia. . Predictive marker immunohistochemical studies are performed on block A1 with the invasive carcinoma showing the following results: . - Estrogen receptor status: Positive (more than 95% tumor cells staining, staining intensity: Strong). - Progesterone receptor status: Positive (more than 90% tumor cells staining, staining intensity: Strong). - HER2 status: Negative for protein overexpression by immunohistochemistry (0). . Internal controls for ER and MS are positive. Cold ischemic time is <5 minutes. The scoring criteria for breast biomarkers by immunohistochemistry is based on the ASCO/CAP guidelines (Esteban AC et al, J Clin Oncol: 2017Dec 07;36(20):2733-0550 and Akanksha GONZALEZ et al, Arch Pathol Lab Med: 2009;134(6):907-22). Deparaffinized sections of formalin fixed tissue (along with appropriate positive controls) are incubated with the above antibody(s). Using the automated [place] stainer, tissue is incubated with the designated antibody which is then localized by a non-biotin, dual polymer detection system. The external controls are reviewed for appropriate reactivity and found to be adequate. Results on the target cell population are indicated above. These tests have not been validated on decalcified tissue. This test was developed and its performance characteristics determined by [facility]. It has not been cleared or approved by the U.S. Food and Drug Administration. The FDA has determined that such clearance or approval is not necessary. This test is used for clinical purposes. It should not be regarded as investigational or for research. . 01 Pathologist provided ICD-10: C50.912 . 01 CPT . 857833, Z57120, 963415, 305133, 559409 Specimen Comment: A courtesy copy of this report has been sent to [facility] Performed at: 01 [facility] [address] [place] [address] [address], [place], [place] [id number] MD Alexander Dickey MD Phone: [phone]
--- NOTE | 2022-03-16 13:05 | DI.US.S_ITS ---
Approved by: Juan Pablo Chahal M.D. on 03/16/2022 at 16:04
--- NOTE | 2022-03-16 13:05 | DI.MG.S_ITS ---
UNILATERAL LEFT DIGITAL DIAGNOSTIC MAMMOGRAM: 03/16/2022 CLINICAL: Clip left. Comparison is made to exams dated: 03/04/2022 ultrasound, 03/04/2022 mammogram, 02/17/2022 mammogram - [facility], and 01/14/2021 mammogram - Outside facility. The left breast is heterogeneously dense, which may obscure small masses (category c / 51-75% glandular tissue). There is a marker clip in the appropriate position in the left breast at 3 o'clock middle depth. This marker clip placement is at the biopsy site. IMPRESSION: POST PROCEDURE MAMMOGRAM FOR MARKER PLACEMENT There was a successful marker clip placement in the left breast middle depth. Based on the Tyrer Cuzick model (a risk assessment model) the patient's lifetime risk is 11.3% and her 10 year risk is 4.4%. According to the ACR, ACS, and NCCN guidelines, an annual breast MRI exam along with mammogram is recommended if the patient's lifetime risk is 20% or greater. This exam was interpreted at Station ID: [id number]. NOTE: For mammograms, a report in lay terms will be sent to the patient. Approximately 15% of breast malignancies will not be visualized mammographically. In the management of a palpable breast mass, a negative mammogram must not discourage biopsy of a clinically suspicious lesion. Electronically Signed By: Juan Pablo Chahal M.D., jr/kaitlyn:03/18/2022 14:48:41 ACR BI-RADS Category Post-procedure mammogram for marker placement
--- NOTE | 2022-03-16 13:21 | DI.US.S_ITS ---
Procedure: US bx breast perc w vac device ULTRASOUND GUIDED BIOPSY LEFT BREAST USING VACUUM DEVICE WITH MARKING DEVICE INSERTED AND POST DIGITAL MAMMOGRAPHIC IMAGIN03/16/2022 CLINICAL: Left breast mass biopsy. PATIENT CONSENT: Risks (minor bleeding, infection, vasovagal reaction and repeat procedure), benefits and alternatives were explained to the patient and written informed consent was obtained. Correlation is made to exams dated: 03/16/2022 mammogram, 03/04/2022 ultrasound, 03/04/2022 mammogram, 02/17/2022 mammogram - [facility], 01/14/2021 mammogram - Outside facility, and 01/27/2020 mammogram - [facility]. An ultrasound guided biopsy using real-time ultrasound was performed for the irregular shaped mass located in the left breast at 1 o'clock middle depth 4 cm from the nipple. This was described on the previous ultrasound report. The skin was prepped in the usual manner. Local anesthetic was administered to the access site. A skin shobha was made in the breast. The abnormality was approached from the lateral aspect. A 12 gauge biopsy needle was placed adjacent to the abnormality under ultrasound guidance. Once the needle was documented to be in the correct location, three specimens were obtained using a vacuum assisted device. A vision clip was inserted into the biopsy cavity. A skin closure strip and a sterile dressing were applied to the access site. Post procedure digital mammographic imaging demonstrates the location device at the targeted area and partial removal of the abnormality. The specimens were sent to the laboratory for pathological analysis. Continued Report - Page 2 of 2 Patient Name: LARRY CARDOZO date: 1960 Sex: F Attending Physician: Joey Indications: Date: 03/16/2022 14:51 At the request of: ZURI MORGAN Procedure: US bx breast perc w vac device IMPRESSION: ULTRASOUND GUIDED BIOPSY MALIGNANT Ultrasound guided biopsy of the mass in the left breast at 1 o'clock middle depth 4 cm from the nipple was successful with no apparent post procedure complications. Pathology indicates malignant invasive lobular carcinoma (IL). Pathology results are concordant with imaging findings. A surgical/oncologic consultation is recommended. This exam was interpreted at Station ID: [id number]. Juan Pablo Stockton M.D., jr,slc/:03/24/2022 10:26:30
== END ==
LOC: US 13:04
PROVIDERS: PCP Internal Medicine; Referring Provider Internal Medicine; Visit Provider Internal Medicine
DX: C50.412 Malignant neoplasm of upper-outer quadrant of left female breast (principal); Z17.0 Estrogen receptor positive status [ER+]
CPT/HCPCS: 19083; 77065

== ENCOUNTER → 2022-04-13 15:16 | Outpatient (CLI) | payer OTHER, SELFPAY ==
--- NOTE | 2022-04-13 15:19 | DI.MRI.S_ITS ---
BREAST MRI OF BOTH BREASTS: 04/13/2022 CLINICAL: Invasive Lobular carcinoma Left breast. TECHNIQUE: The patient was placed prone in a dedicated breast imaging coil. Precontrast axial STIR and 3D FLASH without fat saturation sequences were obtained. Both before and after bolus injection of contrast, sequential 1-minute axial 3D FLASH with fat saturation sequences for 3 time points, with subtraction images and maximum intensity projections (MIP's) generated. Delayed sagittal FLASH images with fat saturation were also obtained. 20 cc ProHance gadolinium based IV contrast was administered without complication. Computer-aided detection, including computer algorithm analysis of MRI image data for lesion detection and characterization, pharmacokinetic analysis, with further physician review for interpretation, was performed. COMPARISON: [facility], , US BREAST LT LIMITED, 03/04/2022, 9:29. [facility], SPECIAL VIEW LT, 03/04/2022, 9:10. [facility], MM SCREENING MAMMO BI, 02/17/2022, 15:27. FINDINGS: Image quality: Excellent. Right breast: Mild scattered nodular background parenchymal enhancement. Few nondilated ducts with inspissated proteinaceous material. No suspicious mass or non masslike enhancement. Left breast: Mild scattered nodular background parenchymal enhancement. There is an irregular, stellate lesion with spiculated margins in the upper outer left breast with early arterial enhancement. Kinetic analysis demonstrates mainly medium initial enhancement and mainly persistent delayed kinetics. The main portion of the lesion measures about 2.0 x 2.4 x 2.6 cm, however there is a bandlike extension posterior and caudal, resulting in the maximum craniocaudal extent to be about 4.1 cm. The lesion is about 1.7 cm away from the chest wall, and the lateral most aspect of abnormal enhancement, which may be an adjacent lymph node, is about 6 mm deep to the skin surface. Another intramammary lymph node in the 3 o'clock position left breast middle depth measures about 5 mm. Miscellaneous: No axillary or internal mammary chain adenopathy. There is a 1.5 cm ovoid T2 hyperintense structure in the lateral right lobe of the liver, presumably a cyst. No enhancement. The visible portions of the chest wall, liver, heart, and lungs appear otherwise normal. IMPRESSION: KNOWN BIOPSY PROVEN MALIGNANCY 1. Irregular biopsy-proven carcinoma in the left upper outer quadrant. 2. Suspicious intramammary lymph node immediately lateral to the dominant mass. 3. 5 mm intramammary lymph node in the 3 o'clock position without significant enhancement. 4. No evidence of contralateral disease or adenopathy. BIRADS six, known carcinoma COMMENT: The imaging literature indicates that a negative contrast breast MRI examination has a high sensitivity and a moderate specificity for detecting and excluding invasive carcinomas to a detection threshold of 3-5 mm; nonetheless, appropriate clinical and mammographic follow-up are recommended. MRI is not sensitive for detecting DCIS (ductal carcinoma in situ) and may not detect large invasive neoplasms that show only minimal enhancement such as mucinous carcinoma. If there are suspicious calcifications or clinically worrisome palpable masses, then biopsy should still be considered. Invasive neoplasms can be hidden by co-existent and benign enhancement caused by mastitis, hormone therapy effects, radiation therapy, , and recent biopsy or surgery. False positive examinations can occur in a number of circumstances, including breasts that have recently been subject to invasive procedures and those that contain atypical ductal hyperplasia, hormonally stimulated glandular tissue, fat necrosis, or radial scars. This exam was interpreted at Station ID: [id number]. Electronically Signed By: Catherine carpenter/:04/14/2022 14:49:24 ACR BI-RADS Category 6: Known biopsy proven malignancy 3346F
== END ==
PROVIDERS: PCP Internal Medicine; Referring Provider Student in an Organized Health Care Education/Training Program; Visit Provider Student in an Organized Health Care Education/Training Program
DX: C50.412 Malignant neoplasm of upper-outer quadrant of left female breast (principal)
CPT/HCPCS: 77049; A9579

== ENCOUNTER → 2022-05-12 09:05 | Outpatient (CLI) | payer OTHER, SELFPAY ==
--- NOTE | 2022-05-12 | DI.CT.S_ITS ---
PROCEDURE: CT CHEST ABD PEL W CON INDICATIONS: LEFT BREAST CANCER TECHNIQUE: After the administration of oral and intravenous contrast, axial sections acquired from the supraclavicular neck to the pubic symphysis. Coronal and sagittal reformats were performed. For radiation dose reduction, the following was used: automated exposure control, adjustment of mA and/or kV according to patient size. COMPARISON: [facility], CT, CT ANGIO CHEST PE PROTOCOL, 11/09/2020, 15:26. [facility], CT, CT ABDOMEN PELVIS W CON, 11/09/2020, 15:26. FINDINGS: Image quality: Adequate CHEST: Lower Neck: No enlarged lymph nodes. Axillae: No enlarged lymph nodes. Chest Wall: Postsurgical changes of the left breast. The breasts are not well evaluated by CT. Lungs and Airways: Biapical pleural/parenchymal scarring. No definite suspicious nodule visualized. Unchanged 2-3 mm nodule versus calcified granuloma lateral right upper lobe (). Pleura: Small left pleural effusion or hemothorax. No pneumothorax. Heart: No pericardial effusion. Thoracic Vessels: The aorta and pulmonary arteries demonstrate normal size. Mediastinum and Clementina: No enlarged lymph nodes. Esophagus: No wall thickening. ABDOMEN: Liver: Multiple small liver hypodensities are present as before, at least some likely representing cysts or hemangiomata. No definitive highly suspicious liver lesion is identified, however the presence of multiple hypodensities makes evaluation difficult. Gallbladder: Unremarkable. Biliary ducts: Unremarkable. Pancreas: No main ductal dilation. Similar appearance of probable interdigitation of fat at the pancreatic head. Spleen: Unremarkable. Adrenal Glands: Unremarkable. Kidneys and Ureters: No hydronephrosis Stomach and Bowel: No bowel obstruction. Peritoneum: No free air or substantial free fluid. Abdominal Nodes: No retroperitoneal or mesenteric adenopathy by size criteria. Vessels: Aorta and inferior vena cava are normal in size. PELVIS: Pelvic Organs: Unremarkable CT appearance. Bladder: Unremarkable. Pelvic Nodes: No enlarged lymph nodes. Bones: Multilevel degenerative change of the visualized spine. Acute appearing fractures the left posterolateral 8th, 9th, 10th, 11th and possibly 12th ribs. There appears to be transitional lumbosacral anatomy present. The most superior non rib-bearing lumbar-type vertebral body is referred to as L1. There is a mild acute appearing superior endplate compression fracture of the L2 vertebral body, approximately 25% vertebral body height loss. IMPRESSION: 1. Small left pleural effusion or hemothorax, nonspecific and indeterminate for metastatic disease versus posttraumatic given the presence of multiple acute left-sided rib fractures. No pneumothorax. 2. Acute appearing compression fracture of L2 with mild vertebral body height loss. 3. No findings specific or highly suspicious for metastatic disease identified within the chest, abdomen, or pelvis. Attention on follow-up exams is recommended. Dictated by: Tyron Carranza M.D. on 05/13/2022 at 9:21 Approved by: Tyron Carranza M.D. on 05/13/2022 at 10:00
--- NOTE | 2022-05-12 | DI.NM.S_ITS ---
PROCEDURE: NM BONE SCAN WHOLE BODY RADIOPHARMACEUTICAL: 19.9 mCi Tc-99m MDP IV. INDICATIONS: LEFT BREAST CANCER TECHNIQUE: Delayed whole-body scintigrams were obtained approximately 3-4 hours after intravenous injection of radiotracer. Anterior and posterior views were acquired from vertex to feet. Additional left and right oblique views of the chest were obtained. COMPARISON: [facility], CT, CT CHEST ABD PEL W CON, 05/12/2022, 10:32. FINDINGS: Degenerative uptake of radiotracer at the acromioclavicular and glenohumeral joints as well as the right greater than left knee joints, the bilateral ankles and mid feet. Increased radiotracer uptake is seen within the left posterolateral and posterior lower ribs, corresponding to fracture seen by CT. No definite metastatic disease is seen. IMPRESSION: 1. Osteoarthritis. 2. Left rib fractures. 3. No evidence of metastatic disease. Dictated by: Thais Valladares M.D. on 05/12/2022 at 13:38 Transcribed by: ANNA on 05/12/2022 at 13:39 Approved by: Thais Valladares M.D. on 05/12/2022 at 14:11
== END ==
PROVIDERS: PCP Internal Medicine; Referring Provider Internal Medicine Hematology & Oncology; Visit Provider Internal Medicine Hematology & Oncology
DX: C50.912 Malignant neoplasm of unspecified site of left female breast (principal); M48.56XA Collapsed vertebra, not elsewhere classified, lumbar region, initial encounter for fracture; S22.42XA Multiple fractures of ribs, left side, initial encounter for closed fracture; J90 Pleural effusion, not elsewhere classified
CPT/HCPCS: 71260; 74177; 78306; A9503; Q9967

== ENCOUNTER → 2022-09-29 14:16 | Outpatient (CLI) | payer OTHER, SELFPAY ==
--- NOTE | 2022-09-29 | DI.RAD.S_ITS ---
Bone Density Report Name: LARRY CARDOZO Age: 62 Sex: Female Ethnicity: White Date of : 1960 Indication: postmenopausal; screening for osteoporosis; prior fracture; Referring Provider: TANISHA HOWARD Study: Bone densitometry was performed. Exam Date: September 29, 2022 Accession number: [id number] Bone Density: Region BMD T-score Z-score Classification Femoral Neck (Left) 0.722 -1.1 0.1 Osteopenia Total Hip (Left) 0.859 -0.7 0.3 Normal Femoral Neck (Right) 0.729 -1.1 0.2 Osteopenia Total Hip (Right) 0.838 -0.8 0.1 Normal Total Hip Mean 0.849 -0.8 0.2 Normal Total Forearm (Left) 0.557 -0.4 0.8 Normal 1/3 Forearm (Left) 0.610 -1.4 -0.1 Osteopenia UD Forearm (Left) 0.447 0.1 1.0 Normal World Health Organization criteria for BMD impression classify patients as: Normal (T-score at or above -1.0), Osteopenia (T-score between -1.0 and -2.5), or Osteoporosis (T-score at or below -2.5). 10-year Fracture Risk: FRAX not reported because: Prior hip or vertebral fracture Previous Exams: -- Region Exam Age BMD T-score BMD Change BMD Change Date g/cm2 vs Baseline vs Previous -- Total Hip(Left) 09/29/2022 62 0.859 -0.7 -0.221 (-20.5%)# -0.221 (-20.5%)# 09/12/2014 54 1.080 1.1 Total Hip(Right) 09/29/2022 62 0.838 -0.8 -0.217 (-20.6%)# -0.217 (-20.6%)# 09/12/2014 54 1.056 0.9 -- *Denotes significance at 95% confidence level, LSC for Total Hip = 0.027 g/cm2 # Denotes dissimilar scan types or analysis methods Impression: The patient has low bone mass, based on the Left Femoral Neck T-score. The patient has risk factors, including: previous fracture. No significant bone loss was observed. Discussion: INCREASED RISK OF FRACTURE DUE TO HISTORY OF FRACTURE. The patient's previous fracture puts the patient at high risk of a future fracture. In untreated patients, the risk of osteoporotic fracture increases approximately two-fold for each 1.0 SD decrease in T-score. Low bone density is not the only risk factor for fracture; also consider factors such as patient's age, frailty or poor health, risk of falling, risk of injury, previous osteoporotic fracture, family history of osteoporosis, cigarette smoking, low body weight, etc. Not everyone with a low trauma fracture has osteoporosis; osteomalacia and other metabolic bone disorders should also be considered. Patients who have osteoporosis should be evaluated for specific diseases and conditions (secondary causes) that may cause or contribute to bone loss and fracture risk. National Osteoporosis Foundation (NOF) recommends pharmacologic intervention for patients with a prior hip or vertebral fracture regardless of BMD T-score. The patient should follow a healthful lifestyle (good nutrition with adequate calcium and vitamin D, and appropriate weight-bearing exercise). Follow-Up: Consider a repeat BMD and Vertebral Fracture Assessment (VFA) exam in 2 years or sooner if medically necessary, to reassess this patient's status. Reported by: JAMIL MARIE M.D. on 09/29/2022 2:56:00 PM.
[2022-09-29 15:25] LABS: Add Manual Diff / Slide Review NO; Basophils Absolute Auto 0 /uL (0-100); Basophils Percent Auto 0.8 % (0-2); Eosinophils Absolute Auto 0 /uL (0-450); Eosinophils Percent Auto 0.8 % (2-4); Hematocrit 36.1 % (36-46); Hemoglobin 12.7 g/dL (12.0-16.0); Lymphocytes Absolute Auto 1500 /uL (1100-4500); Lymphocytes Percent Auto 28.7 % (25-40); Mean Corpuscular HGB Conc 35.3 % (30-36); Mean Corpuscular Hemoglobin 32.6 PG (26-34); Mean Corpuscular Volume 92.3 fL (80-100); Monocytes Absolute Auto 1000 /uL (0-900); Monocytes Percent Auto 18.8 % (3-14); Neutrophils Absolute Auto 2600 /uL (1500-7000); Neutrophils Percent Auto 50.9 % (50-75); Platelet Count 286 X10^3/uL (150-400); Red Blood Cell Count 3.91 X10^6/uL (4.0-5.2); Red Cell Distribution Width 14.2 % (11.6-14.8); White Blood Cell Count 5.1 X10^3/uL (4.5-11.0)
[2022-09-29 15:54] LABS: Alanine Aminotransferase 21 IU/L (<35); Albumin 3.8 g/dL (3.5-5.0); Albumin Globulin Ratio 1.3 (1.0-2.8); Alkaline Phosphatase 79 U/L (38-126); Aspartate Aminotransferase 22 IU/L (14-36); BUN Creatinine Ratio 20.6 (6-22); Bilirubin Total 0.5 mg/dL (0.2-1.3); Blood Urea Nitrogen 13 mg/dL (7-17); Calcium 9.3 mg/dL (8.4-10.2); Carbon Dioxide 29 mmol/L (22-32); Chloride 101 mmol/L (98-107); Estimated Glomerular Filt Rate > 60 mL/min (>60); Glucose 92 mg/dL (80-110); HEMOLYSIS < 15 (0-50); Potassium 4.5 mmol/L (3.4-5.1); Sodium 135 mmol/L (137-145); Total Protein 6.8 g/dL (6.3-8.2)
== END ==
PROVIDERS: PCP Physician Assistant; Referring Provider Internal Medicine Hematology & Oncology; Visit Provider Internal Medicine Hematology & Oncology
DX: Z13.820 Encounter for screening for osteoporosis (principal); M85.852 Other specified disorders of bone density and structure, left thigh; F41.9 Anxiety disorder, unspecified; C50.912 Malignant neoplasm of unspecified site of left female breast; Z78.0 Asymptomatic menopausal state
CPT/HCPCS: 36415; 77080; 80053; 85025

== ENCOUNTER 2022-10-30 20:24 | Emergency (ER) | payer OTHER, SELFPAY ==
[2022-10-30] VITALS (8 sets, daily range): BP systolic 104–116; BP diastolic 55–69; PULSE 77–88; RESP 10–26; TEMP 36.9; O2SAT 96–100; BMI 24.3
--- NOTE | 2022-10-30 21:08 | ED.FALL ---
HPI - Fall General Chief Complaint: Fall Stated Complaint: fall- loc <1 minute Time Seen by Provider: 10/30/22 20:54 Source: patient and EMS Mode of arrival: EMS History of Present Illness HPI Narrative: Patient is a 62-year-old female was brought in by EMS for evaluation of a fall a potentially loss of consciousness for approximately 1 minute. She states she was with some friends. She was not drinking alcohol. She stated that she stood up and became lightheaded and then fell. She did hit her at on the graft. She denies any neck pain. No other injuries from the event. Prior to the fall she was not having palpitations or shortness of breath or chest pain. There was no reported seizure-like activity. No loss of bowel or bladder. She arrived on a backboard. Not in a cervical collar. At the time my evaluation she states she feels much better than prior to the fall. Related Data Home Medications Medication Instructions Recorded Confirmed beclomethasone dipropionate 40 1 inh inhalation BID 11/06/21 11/27/21 mcg/actuation HFA breath activated aerosol (Qvar RediHaler) disulfiram 250 mg tablet 250 mg PO DAILY 11/06/21 11/27/21 escitalopram oxalate 20 mg tablet 20 mg PO DAILY 11/06/21 11/27/21 (Lexapro) levothyroxine 150 mcg tablet 150 mcg PO DAILY 11/06/21 11/27/21 naltrexone 50 mg tablet 50 mg PO DAILY 11/06/21 11/27/21 spironolactone 100 mg tablet 100 mg PO DAILY 11/06/21 11/27/21 trazodone 50 mg tablet 50 mg PO DAILY 11/06/21 11/27/21 Allergies Allergy/AdvReac Type Severity Reaction Status Date / Time No Known Drug Allergies Allergy Verified 11/27/21 13:38 Review of Systems Review of Systems ROS Unobtainable: All systems reviewed & are unremarkable except as noted in HPI and below Patient History Medical History Obstructive sleep apnea Family History Father Hypercholesterolemia CLL (chronic lymphocytic leukemia) Grandfather Heart disease Grandmother Heart disease Mother Age: 77 CLL (chronic lymphocytic leukemia) Uterine fibroid Diabetes mellitus Sister Age: 54 Mental health problem Anxiety Social History Smoking Status: Never smoker Smoking Status: Never smoker alcohol intake frequency: holidays/special occasions only Substance Use Type: does not use Exam Initial Vital Signs Initial Vital Signs: Vital Signs Pulse Rate 88 10/30/22 20:34 Pulse Oximetry 100 10/30/22 20:34 Const General: cooperative, comfortable and No ill appearing HENMT Head: normal to inspection and normocephalic Resp Effort & Inspection: normal respiratory effort Auscultation: clear to auscultation bilaterally Cardio Rate: regular rate Rhythm: regular rhythm GI Inspection: normal to inspection Skin General: no rashes or lesions noted Neuro General: patient alert, patient awake, patient oriented x3 and moves all extremities Extrem General: normal to inspection and capillary refill normal Scores GCS Julian coma scale eye opening: Spontaneous Julian coma scale verbal response: Orientated Diaz coma scale motor response: Obey commands Diaz coma scale total score: 15 Nexus Score for C-Spine Focal Neurologic deficit present: No Midline spinal tenderness present: No Altered level of conciousness present: No Intoxication present: No Distracting Injury Present: No Nexus Criteria for C-spine: 0 Course Orders Ordered: ED Orders 10/30/22 20:35 Basic Metabolic Panel Stat Complete Blood Count AUTO DIFF Stat 10/30/22 21:09 CT head/brain wo con Stat EKG-12 Lead Stat Vital Signs Vital signs: Vital Signs - 8 hr 10/30/22 21:00 10/30/22 21:30 10/30/22 22:00 Pulse Rate 78 78 77 Respiratory Rate 26 H 11 L 12 Blood Pressure Pulse Oximetry 100 100 100 10/30/22 22:30 10/30/22 23:00 Pulse Rate 77 83 Respiratory Rate 21 11 L Blood Pressure 104/55 L Pulse Oximetry 100 96 MDM - Fall Lab Data Attestation: I reviewed the patient's lab results. 10/30/22 20:35 10/30/22 20:35 Labs: Lab Results 10/30/22 10/30/22 Range/Units 20:35 20:35 WBC 8.1 (4.5-11.0) X10^3/uL RBC 4.07 (4.0-5.2) X10^6/uL Hgb 12.6 (12.0-16.0) g/dL Hct 36.8 (36-46) % MCV 90.5 (80-100) fL MCH 31.0 (26-34) PG MCHC 34.2 (30-36) % RDW 13.4 (11.6-14.8) % Plt Count 385 (150-400) X10^3/uL Neut % (Auto) 47.6 L (50-75) % Lymph % (Auto) 41.2 H (25-40) % [place] % (Auto) 8.5 (3-14) % Eos % (Auto) 2.4 (2-4) % Baso % (Auto) 0.3 (0-2) % Neut # (Auto) 3900 (6094-3870) /uL Lymph # (Auto) 3300 (6782-5579) /uL [place] # (Auto) 700 (0-900) /uL Eos # (Auto) 200 (0-450) /uL Baso # (Auto) 0 (0-100) /uL Sodium 135 L (137-145) mmol/L Potassium 3.9 (3.4-5.1) mmol/L Chloride 100 (98-107) mmol/L Carbon Dioxide 26 (22-32) mmol/L BUN 11 (7-17) mg/dL Creatinine 0.62 (0.52-1.04) mg/dL Estimated GFR > 60 (>60) mL/min BUN/Creatinine Ratio 17.7 (6-22) Glucose 133 H (80-110) mg/dL Calcium 9.2 (8.4-10.2) mg/dL Imaging Data CT scan - head: Radiologist's Impression: PROCEDURE:? CT HEAD/BRAIN WO CON ? INDICATIONS:? syncope ? TECHNIQUE:? Noncontrast 4.5 mm thick angled axial sections acquired from the foramen magnum to the vertex, with coronal and sagittal reformats.? For radiation dose reduction, the following was used:? automated exposure control, adjustment of mA and/or kV according to patient size.? ? COMPARISON:? [facility], MR, MR BRAIN ([facility]) [facility] CON, 06/07/2019, 12:23. ? FINDINGS:? Image quality:? Excellent.? ? CSF spaces:? Basal cisterns are patent.? No extra-axial fluid collections.? The ventricles are symmetric in size and shape.? ? Brain:? No acute intracranial hemorrhage or mass effect.? There is cerebral volume loss for age, with resultant ventricular and sulcal prominence.? There are periventricular and deep white matter chronic small vessel ischemic changes.? There is intracranial internal carotid artery atherosclerosis.? ? Skull and face:? Mild right frontal scalp edema.? Calvarium and visualized facial bones appear intact, without suspicious lesions.? ? Sinuses:? Visualized sinuses and mastoids are clear.? ? IMPRESSION:? Mild right frontal scalp edema.? No skull fracture.? No acute intracranial abnormality. ECG Data Attestation: I personally reviewed and interpreted this ECG as follows: Interpretation: Sinus rhythm Ventricular rate 80 First-degree AV block IL interval 2 3 milliseconds Normal axis Normal QRS Normal QTC No ST T changes MDM Narrative Medical decision making narrative: Patient ambulated without difficulty. Workup here in the emergency department is unremarkable. Labs unremarkable. EKG is unremarkable. No ectopy noted on the monitors. She is not having chest pain. No shortness of breath. Will discharge patient home with instructions to contact her primary doctor for follow-up. She was given return precautions. She expressed understanding and agreement. Discharge Plan Departure Patient Disposition: Home Clinical Impression: Syncope Instructions: DI for Syncope in Adults (Fainting) Activity Restrictions/Additional Instructions: Continue to take all of your medications as directed. Contact your primary doctor. Return emergency department for worsening symptoms Prescriptions: No Action levothyroxine 150 mcg tablet 150 mcg PO DAILY spironolactone 100 mg tablet 100 mg PO DAILY escitalopram oxalate [Lexapro] 20 mg tablet 20 mg PO DAILY naltrexone 50 mg tablet 50 mg PO DAILY Qvar RediHaler 40 mcg/actuation HFA aerosol breath activated 1 inh inhalation BID disulfiram 250 mg tablet 250 mg PO DAILY trazodone 50 mg tablet 50 mg PO DAILY Referrals: Ania Fagan PA-C [Primary Care Provider] - Stand Alone Forms: Patient Portal/API
--- NOTE | 2022-10-30 21:09 | DI.CT.S_ITS ---
PROCEDURE: CT HEAD/BRAIN WO CON INDICATIONS: syncope TECHNIQUE: Noncontrast 4.5 mm thick angled axial sections acquired from the foramen magnum to the vertex, with coronal and sagittal reformats. For radiation dose reduction, the following was used: automated exposure control, adjustment of mA and/or kV according to patient size. COMPARISON: [facility], MR, MR BRAIN ([facility]) [facility], 06/07/2019, 12:23. FINDINGS: Image quality: Excellent. CSF spaces: Basal cisterns are patent. No extra-axial fluid collections. The ventricles are symmetric in size and shape. Brain: No acute intracranial hemorrhage or mass effect. There is cerebral volume loss for age, with resultant ventricular and sulcal prominence. There are periventricular and deep white matter chronic small vessel ischemic changes. There is intracranial internal carotid artery atherosclerosis. Skull and face: Mild right frontal scalp edema. Calvarium and visualized facial bones appear intact, without suspicious lesions. Sinuses: Visualized sinuses and mastoids are clear. IMPRESSION: Mild right frontal scalp edema. No skull fracture. No acute intracranial abnormality. Approved by: Tyron Merchant M.D. on 10/30/2022 at 22:06
[2022-10-30 21:32] LABS: Add Manual Diff / Slide Review NO; Basophils Absolute Auto 0 /uL (0-100); Basophils Percent Auto 0.3 % (0-2); Eosinophils Absolute Auto 200 /uL (0-450); Eosinophils Percent Auto 2.4 % (2-4); Hematocrit 36.8 % (36-46); Hemoglobin 12.6 g/dL (12.0-16.0); Lymphocytes Absolute Auto 3300 /uL (1100-4500); Lymphocytes Percent Auto 41.2 % (25-40); Mean Corpuscular HGB Conc 34.2 % (30-36); Mean Corpuscular Volume 90.5 fL (80-100); Monocytes Absolute Auto 700 /uL (0-900); Monocytes Percent Auto 8.5 % (3-14); Neutrophils Absolute Auto 3900 /uL (1500-7000); Neutrophils Percent Auto 47.6 % (50-75); Platelet Count 385 X10^3/uL (150-400); Red Blood Cell Count 4.07 X10^6/uL (4.0-5.2); Red Cell Distribution Width 13.4 % (11.6-14.8); White Blood Cell Count 8.1 X10^3/uL (4.5-11.0)
[2022-10-30 21:39] LABS: BUN Creatinine Ratio 17.7 (6-22); Blood Urea Nitrogen 11 mg/dL (7-17); Calcium 9.2 mg/dL (8.4-10.2); Carbon Dioxide 26 mmol/L (22-32); Chloride 100 mmol/L (98-107); Estimated Glomerular Filt Rate > 60 mL/min (>60); Glucose 133 mg/dL (80-110); HEMOLYSIS < 15 (0-50); Potassium 3.9 mmol/L (3.4-5.1); Sodium 135 mmol/L (137-145)
== END 2022-10-30 23:33 | disposition home or self-care (01) ==
PROVIDERS: Emergency Provider Emergency Medicine; PCP Physician Assistant
DX: R55 Syncope and collapse (principal); I44.0 Atrioventricular block, first degree
CPT/HCPCS: 36415; 70450; 80048; 85025; 93005; 93010; 99283; 99284

== ENCOUNTER → 2023-03-15 10:15 | Outpatient (CLI) | payer OTHER, SELFPAY ==
--- NOTE | 2023-03-15 | DI.MG.S_ITS ---
BILATERAL DIGITAL DIAGNOSTIC MAMMOGRAM 3D/2D POST LUMPECTOMY: 03/15/2023 CLINICAL: Left breast cancer. Comparison is made to exams dated: 04/13/2022 breast MRI, 02/17/2022 mammogram, 03/04/2022 mammogram - [facility], 01/14/2021 mammogram - Outside facility, and 01/27/2020 mammogram - [facility]. Both breasts are heterogeneously dense, which may obscure small masses (category c / 51-75% glandular tissue). There are benign post operative findings in the left breast from prior lumpectomy. No significant masses, calcifications, or other findings are seen in either breast. IMPRESSION: BENIGN Status post left lumpectomy. No mammographic evidence of malignancy. A 1 year screening mammogram is recommended. Findings and recommendations were conveyed to the patient during today's evaluation. This exam was interpreted at Station ID: [id number]. NOTE: For mammograms, a report in lay terms will be sent to the patient. Approximately 15% of breast malignancies will not be visualized mammographically. In the management of a palpable breast mass, a negative mammogram must not discourage biopsy of a clinically suspicious lesion. Electronically Signed By: Chanel Diamond M.D. esb/:03/15/2023 13:59:23 copy to: LORAINE CLINE letter sent: Normal Exam ACR BI-RADS Category 2: Benign Finding(s) 3342F
== END ==
PROVIDERS: PCP Physician Assistant; Referring Provider Internal Medicine Hematology & Oncology; Visit Provider Internal Medicine Hematology & Oncology
DX: C50.912 Malignant neoplasm of unspecified site of left female breast (principal); Z98.890 Other specified postprocedural states
CPT/HCPCS: 77066; G0279

== ENCOUNTER → 2024-03-16 08:05 | Outpatient (CLI) | payer OTHER, SELFPAY ==
--- NOTE | 2024-03-16 | DI.MG.S_ITS ---
BILATERAL DIGITAL SCREENING MAMMOGRAM 3D/2D WITH CAD: 03/16/2024 CLINICAL: Routine screening. Personal history of left breast cancer. Comparison is made to exams dated: 03/15/2023 mammogram and 02/17/2022 mammogram - [facility]. The breasts are heterogeneously dense, which may obscure small masses (category c / 51-75% glandular tissue). Current study was also evaluated with a Computer Aided Detection (CAD) system. There are benign post operative findings in the left breast. No significant masses, calcifications, or other findings are seen in either breast. There has been no significant interval change. IMPRESSION: BENIGN There is no mammographic evidence of malignancy. A 1 year screening mammogram is recommended. This exam was interpreted at Station ID: [id number]. NOTE: For mammograms, a report in lay terms will be sent to the patient. Approximately 15% of breast malignancies will not be visualized mammographically. In the management of a palpable breast mass, a negative mammogram must not discourage biopsy of a clinically suspicious lesion. Electronically Signed By: Al lancaster/kaitlyn:03/17/2024 20:38:01 copy to: LORAINE CLINE letter sent: Normal Exam ACR BI-RADS Category 2: Benign
== END ==
PROVIDERS: Family Provider Physician Assistant; PCP Physician Assistant; Referring Provider Internal Medicine Hematology & Oncology; Visit Provider Internal Medicine Hematology & Oncology
DX: Z12.31 Encounter for screening mammogram for malignant neoplasm of breast (principal); Z85.3 Personal history of malignant neoplasm of breast; R92.333 Mammographic heterogeneous density, bilateral breasts
CPT/HCPCS: 77063; 77067

== ENCOUNTER → 2024-05-14 12:44 | Outpatient (CLI) | payer OTHER, SELFPAY ==
--- NOTE | 2024-05-14 12:48 | DI.RAD.S_ITS ---
PROCEDURE: XR FOREARM LT 2V INDICATIONS: Left wrist and forearm injury TECHNIQUE: 2 views of the forearm were acquired. COMPARISON: None. FINDINGS: Bones: There is a comminuted distal radial fracture with mild apex ulnar angulation. No other fractures identified. Radiocarpal alignment is anatomic. Mineralization is normal. Soft tissues: No suspicious soft tissue calcifications or masses. IMPRESSION: Distal radial fracture. Dictated by: Donna Still M.D. on 05/14/2024 at 12:40 Approved by: Donna Still M.D. on 05/14/2024 at 12:42
--- NOTE | 2024-05-14 12:48 | DI.RAD.S_ITS ---
PROCEDURE: XR WRIST LT MIN 3V INDICATIONS: Left wrist and forearm injury TECHNIQUE: 3 views of the wrist were acquired. COMPARISON: None. FINDINGS: Bones: There is comminuted fracture of the distal radius with foreshortening and minimal apex volar and slightly ulnar angulation. Radiocarpal alignment is maintained. There is mild widening of the scapholunate interval. Mineralization is normal. Soft tissues: No suspicious soft tissue calcifications. IMPRESSION: Distal radial fracture. Scapholunate widening suggestive of age-indeterminate scapholunate ligamentous injury. Dictated by: Donna Still M.D. on 05/14/2024 at 12:43 Approved by: Donna Still M.D. on 05/14/2024 at 12:45
== END ==
LOC: RAD 12:47
PROVIDERS: Family Provider Physician Assistant; PCP Physician Assistant; Referring Provider Physician Assistant Surgical; Visit Provider Physician Assistant Surgical
DX: S52.502A Unspecified fracture of the lower end of left radius, initial encounter for closed fracture (principal); X58.XXXA Exposure to other specified factors, initial encounter
CPT/HCPCS: 73090; 73110

== ENCOUNTER 2024-05-14 13:58 | Emergency (ER) | payer OTHER, SELFPAY ==
[2024-05-14 14:02] VITALS: BP 126/70; PULSE 89; RESP 16; TEMP 36.7; O2SAT 99; BMI 23.6
[2024-05-14] MEDS: LIDOCAINE 1% 20 ML INJ (14:25)
[2024-05-14] MEDS: HYDROCODONE/ACET 5/325 TABLET 1 TAB PO (14:26)
--- NOTE | 2024-05-14 14:45 | CM.MNRNOTE ---
Pt reports on she fell over and landed on her left wrist. Left wrist swollen; pt able to move fingers. Pulses 2+. Skin intact; no open wounds noted. Pt currently icing wrist.
--- NOTE | 2024-05-14 15:23 | ED_ITS ---
HPI - Extremity Injury (Upper) General Chief Complaint: Extremity Injury, Upper Stated Complaint: broken L forearm/wrist x-ray done Time Seen by Provider: 05/14/24 14:19 Source: patient Mode of arrival: Family Vehicle History of Present Illness HPI narrative: Patient is 63-year-old female remote history of breast cancer presenting today with left wrist pain. She reports that 4 days ago she tripped over a flower pot and fell. She is having increasing pain and swelling. No numbness or tingling. No head injury no loss of consciousness no other injury. She initially went to walk-in clinic where she was found to have a distal radial fracture. Sent here for splint and evaluation Related Data Home Medications Medication Instructions Recorded Confirmed disulfiram 250 mg tablet 250 mg PO DAILY 11/06/21 11/27/21 escitalopram oxalate 20 mg tablet 20 mg PO DAILY 11/06/21 11/27/21 (Lexapro) spironolactone 100 mg tablet 100 mg PO DAILY 11/06/21 11/27/21 trazodone 50 mg tablet 50 mg PO DAILY 11/06/21 11/27/21 beclomethasone dipropionate 80 inhalation 05/14/24 05/14/24 mcg/actuation HFA breath activated aerosol (Qvar RediHaler) clonidine HCl 0.1 mg tablet 0.1 mg PO 3XD 05/14/24 05/14/24 gabapentin 100 mg capsule mg PO 05/14/24 05/14/24 letrozole 2.5 mg tablet 2.5 mg PO DAILY 05/14/24 05/14/24 levothyroxine 125 mcg tablet 125 mcg PO DAILY 05/14/24 05/14/24 minocycline 100 mg capsule mg PO DAILY 05/14/24 05/14/24 Previous Rx's Medication Instructions Recorded hydrocodone 5 mg-acetaminophen 325 1 tab PO Q8H PRN pain #30 tabs 05/14/24 mg tablet Allergies Allergy/AdvReac Type Severity Reaction Status Date / Time No Known Drug Allergies Allergy Verified 05/14/24 12:22 Patient History Medical History Obstructive sleep apnea Family History Father Hypercholesterolemia CLL (chronic lymphocytic leukemia) Grandfather Heart disease Grandmother Heart disease Mother Age: 79 CLL (chronic lymphocytic leukemia) Uterine fibroid Diabetes mellitus Sister Age: 56 Mental health problem Anxiety Social History Smoking Status: Never smoker Smoking Status: Never smoker alcohol intake frequency: holidays/special occasions only Exam Initial Vital Signs Initial Vital Signs: Vital Signs Temperature 98.1 F 05/14/24 14:02 Pulse Rate 89 05/14/24 14:02 Respiratory Rate 16 05/14/24 14:02 Blood Pressure 126/70 05/14/24 14:02 Pulse Oximetry 99 05/14/24 14:02 Oxygen Delivery Method Room Air 05/14/24 14:02 GENERAL: Well-appearing, well-nourished and in no acute distress. CARDIOVASCULAR: peripheral pulses in tact, cap refill <2 sec RESPIRATORY: No respiratory distress, speaks in full sentences without difficulty EXTREMITIES: Normal range of motion, no clubbing or edema. Neurovascularly intact Left upper extremity significantly swollen distal radial pulse intact able to move fingers no elbow pain no shoulder or clavicle pain NEUROLOGICAL: Cranial nerves II through XII grossly intact. Normal gait and speech. SKIN: Warm, dry, no petechiae, no rashes or lesions. Procedures Nerve Block Nerve Block 1: Local Anesthetic: lidocaine 1% Amount of anesthesia used (mL): 10 Nerve Blocks: hematoma block Procedure Successful: Yes Patient Tolerated Procedure: Well and No complications Complications: none Orthopedic Fracture Reduction Fracture #1: Side: left Fracture Reduction Location: radius and ulna Analgesia: hematoma block Technique: direct manipulation and traction/counter-traction Post Reduction X-rays Demonstrate: other (no change) Post-reduction neuro exam: intact and no change Post-reduction vascular exam: intact and no change Splint Applied: Yes Orthopedic Splinting/Casting Injury #1: Side: left Upper Extremity Injury Location: wrist Upper Extremity Immobilizer: sling/shoulder immobilizer and sugar tong splint Post splinting neuro exam: intact Post splinting vascular exam: intact Placed by: Provider Course Orders Ordered: ED Orders 05/14/24 15:30 XR wrist LT 2V Stat Discontinued Medications Hydrocodone Bitart/Acetaminophen (Hydrocodone/Acet 5/325 Tablet) 1 tab PO NOW ONE Stop: 05/14/24 14:18 Last Admin: 05/14/24 14:26 Dose: 1 tab Documented By: JANETH Lidocaine HCl (Lidocaine 1% 20 Ml) 20 ml INJ INTRA-OP ONE Stop: 05/14/24 14:18 Last Admin: 05/14/24 14:25 Dose: 20 ml Documented By: JANETH Vital Signs Vital signs: Vital Signs - 8 hr 05/14/24 14:02 05/14/24 15:27 05/14/24 15:27 Temperature 98.1 F Pulse Rate 89 74 Respiratory Rate 16 Blood Pressure 126/70 133/73 Pulse Oximetry 99 100 Oxygen Delivery Method Room Air 05/14/24 15:30 05/14/24 15:42 Temperature Pulse Rate 76 Respiratory Rate 19 Blood Pressure Pulse Oximetry 100 Oxygen Delivery Method MDM - Extremity Injury (Upper) Imaging Data Extremity x-ray #1: Radiologist's Impression: PROCEDURE: XR FOREARM LT 2V INDICATIONS: Left wrist and forearm injury TECHNIQUE: 2 views of the forearm were acquired. COMPARISON: None. FINDINGS: Bones: There is a comminuted distal radial fracture with mild apex ulnar angulation. No other fractures identified. Radiocarpal alignment is anatomic. Mineralization is normal. Soft tissues: No suspicious soft tissue calcifications or masses. IMPRESSION: Distal radial fracture. Dictated by: Donna Still M.D. on 05/14/2024 at 12:40 Extremity x-ray #2: Radiologist's Impression: PROCEDURE: XR WRIST LT MIN 3V INDICATIONS: Left wrist and forearm injury TECHNIQUE: 3 views of the wrist were acquired. COMPARISON: None. FINDINGS: Bones: There is comminuted fracture of the distal radius with foreshortening and minimal apex volar and slightly ulnar angulation. Radiocarpal alignment is maintained. There is mild widening of the scapholunate interval. Mineralization is normal. Soft tissues: No suspicious soft tissue calcifications. IMPRESSION: Distal radial fracture. Scapholunate widening suggestive of age-indeterminate scapholunate ligamentous injury. Dictated by: Donna Still M.D. on 05/14/2024 at 12:43 Extremity x-ray #3: Radiologist's Impression: PROCEDURE: XR WRIST LT 2V INDICATIONS: reduction attempt TECHNIQUE: 2 views of the wrist were acquired. COMPARISON: [facility], XR WRIST LT MIN 3V, 05/14/2024, 12:46. FINDINGS: Bones: Casting material obscures some fine bony detail. There is no change in alignment of the distal radial fracture Soft tissues: No suspicious soft tissue calcifications. IMPRESSION: Unchanged alignment of the distal radial fracture post splinting. Dictated by: Donna Still M.D. on 05/14/2024 at 14:55 Approved by: Donna Still M.D. on 05/14/2024 at 14:57 [facility] Narrative Medical decision making narrative: Patient is 63-year-old female presents today with left wrist pain. She had a mechanical fall 4 days ago. She is significant swelling. Attempted reduction but no significant change. She is splinted. Pain is controlled with [place] neurovascularly she is intact. 2260 Dr[address] Allison orthopedics updated patient's symptoms test results she will follow-up with patient in clinic. Patient initially was seen at the walk-in clinic she was prescribed narcotics from them. Discharge Plan Departure Patient Disposition: Home Clinical Impression: Distal radius fracture, left Instructions: DI for Wrist Fracture Activity Restrictions/Additional Instructions: *You have been diagnosed with left wrist fracture *What to do: At this time elevate and ice as often as possible. Dr. Allison from ortho should call you tomorrow. Agrees you may likely need surgery *Continue to take medications as directed [place] take as directed *Follow up with your primary care provider in 2-3 days or call [phone] Call [facility] *Return to ER if you should have increased numbness tingling weakness or any new, worsening or concerning symptoms Prescriptions: No Action gabapentin 100 mg capsule PO minocycline 100 mg capsule PO DAILY clonidine HCl 0.1 mg tablet 0.1 mg PO 3XD Qvar RediHaler 80 mcg/actuation HFA aerosol breath activated inhalation levothyroxine 125 mcg tablet 125 mcg PO DAILY letrozole 2.5 mg tablet 2.5 mg PO DAILY hydrocodone-acetaminophen 5-325 mg tablet 1 tab PO Q8H PRN (Reason: pain) Qty: 30 0RF Rx Instructions: May take 1-2 if needed. Caution, we will cause sedation. spironolactone 100 mg tablet 100 mg PO DAILY escitalopram oxalate [Lexapro] 20 mg tablet 20 mg PO DAILY disulfiram 250 mg tablet 250 mg PO DAILY trazodone 50 mg tablet 50 mg PO DAILY Referrals: [facility] [Provider Group] Gisselle Allison MD [Physician] - Ania Fagan PA-C [Primary Care Provider] - Stand Alone Forms: Patient Portal/API/Survey
[2024-05-14 15:27] VITALS: BP 133/73; PULSE 74; O2SAT 100
[2024-05-14 15:30] VITALS: PULSE 76; O2SAT 100
--- NOTE | 2024-05-14 15:30 | DI.RAD.S_ITS ---
PROCEDURE: XR WRIST LT 2V INDICATIONS: reduction attempt TECHNIQUE: 2 views of the wrist were acquired. COMPARISON: [facility], CR, XR WRIST LT MIN 3V, 05/14/2024, 12:46. FINDINGS: Bones: Casting material obscures some fine bony detail. There is no change in alignment of the distal radial fracture Soft tissues: No suspicious soft tissue calcifications. IMPRESSION: Unchanged alignment of the distal radial fracture post splinting. Dictated by: Donna Still M.D. on 05/14/2024 at 14:55 Approved by: Donna Still M.D. on 05/14/2024 at 14:57
[2024-05-14 15:42] VITALS: RESP 19
== END 2024-05-14 15:44 | disposition home or self-care (01) ==
PROVIDERS: Emergency Provider Emergency Medicine; Family Provider Physician Assistant; PCP Physician Assistant
DX: S52.502A Unspecified fracture of the lower end of left radius, initial encounter for closed fracture (principal); W01.0XXA Fall on same level from slipping, tripping and stumbling without subsequent striking against object, initial encounter
CPT/HCPCS: 25605; 64450; 73090; 73100; 73110; 99283; 99284

== ENCOUNTER → 2024-09-26 13:38 | Outpatient (RCR) | payer OTHER, SELFPAY ==
--- NOTE | 2023-05-06 15:25 | PT.OPPOC ---
Physical, Occupational & Speech Therapy At [facility] Current Diagnoses Malignant neoplasm of unspecified site of left female breast (05/06/23) Lymphedema, not elsewhere classified (05/06/23) Visit Care Team Role Provider Type Ania Fagan PA-C Family Provider Advanced Ballistics Teacher Primary Care Provider Specialty: Medical Address: [address] [place] [address], [id number] Email: Sheldon Rosario MD Attending Provider Non-Staff Referring Provider Specialty: Medical Address: [address] [address], [place], [address] Email: Plan Of Care PT-OP-T Assessment and Plan Start: 04/26/23 08:47 Freq: Status: Active Protocol: Document 05/06/23 08:07 IRWIN (Rec: 05/06/23 09:47 SAK [id number]) Physical Therapy Assessment Rehab Potential Rehabilitation Potential Good Evaluation Complexity Number of Personal Factors/Comorbidities 1-2 Number of Body Systems Impaired 3 Clinical Presentation at Evaluation Evolving Impairments Impairments Edema,Integument,Pain Goals Four Impairment dec left UE ROM with left chest soft tissue tightness Short Term Goal (STG) Patient to be instructed in HEP and self-massage STG Duration 06/13/23 Mcfp Goal (LTG) Patient to be independent in exercises and self-massage and demonstrate left shoulder ROM WNL to allow her to perform all usual activities LTG Duration 08/12/23 Three Impairment pain subaxillary region Impairment interrupts sleep Night Filler Goal (LTG) Decrease pain sufficient to allow patient to sleep through the night without waking due to pain LTG Duration 08/12/23 Two Impairment decreased scar mobility and tissue fibrosis left breast Night Filler Goal (LTG) Improve scar mobility left to WNL and decrease tissue fibrosis left breast from moderate to minimal LTG Duration 08/12/23 One Impairment lymphedema left UE and subaxillary area Short Term Goal (STG) Patient to be instructed in all aspects of lymphedema care to include skin care, elevation, manual lymphatic drainage, lymphedema exercises , and compression STG Duration 06/13/23 Mcfp Goal (LTG) Decrease lymphedema to a stable level (no increase or decrease greater than 1 cm over the course of 1 week) and patient to be independent with all aspects of lymphedema care including obtaining appropriate compression garments LTG Duration 08/12/23 Assessment Summary Assessment Patient presents to PT with function-limiting lymphedema left UE and subaxillary region with pain, decreased soft tissue mobility, and lack of knowledge for self-managament. Patient would benefit from skilled physical therapy for lymphedema management, therapeutic exercises, manual techniques, and patient education to help her achieve the goals as above. Patient demonstrated good understanding of discussed topics today which included pathology of lymphedema, treatment components, and precautions. She was instructed in written instructions for self-MLD, exercise, and bandaging, as well as local and online resources. She was issued loaner compression glove, sleeve, swell spot, and bra today, with plans for instruction in self bandaging and continued treatment next session. POC was discussed and patient was in agreement. Physical Therapy Plan Frequency and Duration Frequency of Treatment 20 visits Duration of treatment (weeks) 12 Plan of Care Start Date 05/06/23 Plan of Care End Date 08/05/23 Therapeutic Interventions Therapeutic Interventions Home Exercise Program, Lymphedema Management,Manual Therapy,Patient/Caregiver Education,Self-Care/Home Management,Soft Tissue Mobilization,Taping, Therapeutic Exercises Next Visit Focus/Plan Next Note Type Treatment Note Next Visit Plan Assess response to compression garments, swell spot. Provide MLD, review HEP , perform lymphedema bandaging left UE with patient instruction for self bandaging . Plan of Care Dates Plan of Care Start Date 05/06/23 Plan of Care End Date 08/05/23 Electronically Signed by: Kay Hunt, PT 05/09/23 [id number] If you are in agreement with this Plan of Care, please return a signed and dated copy. I have reviewed this Plan of Care and certify that the skilled therapy services above are required to meet the patient?s needs. Physician Signature Date Printed Name and Credentials Clinical Instructor Signature Printed Name and Credentials
--- NOTE | 2023-05-06 15:25 | PT.OIE ---
Current Diagnoses Malignant neoplasm of unspecified site of left female breast (05/06/23) Lymphedema, not elsewhere classified (05/06/23) Past Medical History (Last Reviewed 10/31/22 @ 04:48 by Will Forrest DO) Obstructive sleep apnea Visit Care Team Role Provider Type Ania Fagan PA-C Family Provider Advanced Photographic Equipment Assembler Primary Care Provider Specialty: Medical Address: [address] [place], [address] Email: Sheldon Rosario MD Attending Provider Non-Staff Referring Provider Specialty: Medical Address: [address] [address], [place], [address] Email: Physical Therapy Initial Evaluation PT-OP-A Visit Information Start: 04/26/23 08:47 Freq: Status: Active Protocol: Document 05/06/23 08:07 SAK (Rec: 05/06/23 09:14 SAK [id number]) Out-Patient Physical Therapy Visit Information Visit Information Visit Type Initial Evaluation Visit Start Time 08:15 Visit Stop Time 09:28 Total Visit Minutes 85 Visit Number 1 Evaluation Information Evaluation Date 05/06/23 PT-OP-B Current Condition Start: 04/26/23 08:47 Freq: Status: Active Protocol: Document 05/06/23 08:07 SAK (Rec: 05/06/23 09:14 SAK [id number]) Current Condition History of Current Condition Onset Date Current Complaints left hand swelling History of Current Condition invasive lobular carcinoma left, s/p partial mastectomy with axillary dissection and radiation left breast finished July 2022, now on Letrozol., has had 2 episodes of left hand swelling after walking her dog holding onto the leash with left hand and dog pulling 5-6 months after surgery. Patient is right handed. Also reports left UE feels achy, heavy, and nerve pain and swelling under armpit . Still has numbness and tingly left fingers. Tried managing on her own, bought sleeve off [employer], hasn't seemed to help. No usual exercise except dog walking. Reports hasn't done any scar massage on mastectomy scar Treatment Goals Patient/Caregiver Goals Decrease lymphedema and be able to self-manage PT-OP-C Subjective Start: 04/26/23 08:47 Freq: Status: Active Protocol: Document 05/06/23 08:07 SAK (Rec: 05/06/23 09:47 [facility] [id number]) Patient Questionnaires Lymphedema Life Impact Score Lymphedema Score 12 OP-PT Pain Assessment Pain Assessment Grid Paper Pain Assessment Grid Completed Yes Location left UE and subaxillary Pain Location Details achy and heavy Intensity 5 Description Acute Frequency Frequent Patient Stated Pain Goal decrease pain , no waking due to pain Comments Pain Comments pain interrupts sleep PT-OP-J Posture/Palpation/Skin Start: 04/26/23 08:47 Freq: Status: Active Protocol: Document 05/06/23 08:07 SAK (Rec: 05/06/23 09:47 SAK [id number]) Skin Assessment Incisional Assessment Incision Appearance/Comments well healed, decreased scar mobility PT-OP-K Range of Motion Start: 04/26/23 08:47 Freq: Status: Active Protocol: Document 05/06/23 08:07 SAK (Rec: 05/09/23 15:25 SAK [id number]) Shoulder Goniometric Range of Motion Shoulder Left Active Flexion 155 Extension 20 Abduction 150 Horizontal Abduction 75 External Rotation at 45 degrees 50 Abduction Right Active Shoulder ROM WFL Yes PT-OP-N Lymphedema Start: 04/26/23 08:47 Freq: Status: Active Protocol: Document 05/06/23 08:07 SAK (Rec: 05/06/23 09:14 SAK [id number]) Lymphedema Measurements Upper Extremity Circumference Measurements Left Affected MCP 19.8 cm Dorsum of Hand 21.4 cm Wrist 18.7 cm 5 cm From Wrist Crease 19.6 cm 10 cm From Wrist Crease 23 cm 15 cm From Wrist Crease 26.4 cm 20 cm From Wrist Crease 26.8 cm 25 cm From Wrist Crease 27.3 cm 30 cm From Wrist Crease 27.8 cm 35 cm From Wrist Crease 30.3 cm 40 cm From Wrist Crease 32.4 cm Elbow Joint 26.8 cm Right Unaffected MCP 19 cm Dorsum of Hand 20.7 cm Wrist 17.7 cm 5 cm From Wrist Crease 19.1 cm 10 cm From Wrist Crease 22.8 cm 15 cm From Wrist Crease 25.8 cm 20 cm From Wrist Crease 26.3 cm 25 cm From Wrist Crease 26 cm 30 cm From Wrist Crease 28 cm 35 cm From Wrist Crease 30.3 cm 40 cm From Wrist Crease 33.3 cm Elbow Joint 26.4 cm Comments Lymphedema Comments lymphedema most significant left hand and subaxillary region with decreased soft tissue mobility of scar left breast and palpable tissue fibrosis left breast. PT-OP-Q Treatments Start: 04/26/23 08:47 Freq: Status: Active Protocol: Document 05/06/23 08:07 [facility] (Rec: 05/06/23 09:47 [facility] [id number]) Lymphedema Treatment Manual Lymphatic Drainage Location for left UE and subaxillary lymphedema Duration 12 Comments patient instruction for self massage Lymphedema Wrapping Body Location left hand and UE, subaxillary region Other issued loaner compression glove and sleeve (Juzo 20-30 mm Hg), compression bra ( prarie wear) and swell spot Sequential Lymphedema Exercises Location instructed and issued handout Compression Garment Assessment Compression Garment Assessment Details good fit of loaner garments Patient Education Lymphedema Pathology instructed Lymphedema Prevention instructed and issued handout Lymphedema Precautions instructed and issued handout Compression Garments discussed and issued loaner Self Manual Lymphatic Drainage instructed and demo Sequential Lymphedema Exercises discussed and issued handout PT-OP-T Assessment and Plan Start: 04/26/23 08:47 Freq: Status: Active Protocol: Document 05/06/23 08:07 [facility] (Rec: 05/06/23 09:47 [facility] [id number]) Physical Therapy Assessment Rehab Potential Rehabilitation Potential Good Evaluation Complexity Number of Personal Factors/Comorbidities 1-2 Number of Body Systems Impaired 3 Clinical Presentation at Evaluation Evolving Impairments Impairments Edema,Integument,Pain Goals Four Impairment dec left UE ROM with left chest soft tissue tightness Short Term Goal (STG) Patient to be instructed in HEP and self-massage STG Duration 06/13/23 Prison Goal (LTG) Patient to be independent in exercises and self-massage and demonstrate left shoulder ROM WNL to allow her to perform all usual activities LTG Duration 08/12/23 Three Impairment pain subaxillary region Impairment interrupts sleep Prison Goal (LTG) Decrease pain sufficient to allow patient to sleep through the night without waking due to pain LTG Duration 08/12/23 Two Impairment decreased scar mobility and tissue fibrosis left breast Accounting Manager Cpa Goal (LTG) Improve scar mobility left to WNL and decrease tissue fibrosis left breast from moderate to minimal LTG Duration 08/12/23 One Impairment lymphedema left UE and subaxillary area Short Term Goal (STG) Patient to be instructed in all aspects of lymphedema care to include skin care, elevation, manual lymphatic drainage, lymphedema exercises , and compression STG Duration 06/13/23 Prison Goal (LTG) Decrease lymphedema to a stable level (no increase or decrease greater than 1 cm over the course of 1 week) and patient to be independent with all aspects of lymphedema care including obtaining appropriate compression garments LTG Duration 08/12/23 Assessment Summary Assessment Patient presents to PT with function-limiting lymphedema left UE and subaxillary region with pain, decreased soft tissue mobility, and lack of knowledge for self-managament. Patient would benefit from skilled physical therapy for lymphedema management, therapeutic exercises, manual techniques, and patient education to help her achieve the goals as above. Patient demonstrated good understanding of discussed topics today which included pathology of lymphedema, treatment components, and precautions. She was instructed in written instructions for self-MLD, exercise, and bandaging, as well as local and online resources. She was issued loaner compression glove, sleeve, swell spot, and bra today, with plans for instruction in self bandaging and continued treatment next session. POC was discussed and patient was in agreement. Physical Therapy Plan Frequency and Duration Frequency of Treatment 20 visits Duration of treatment (weeks) 12 Plan of Care Start Date 05/06/23 Plan of Care End Date 08/05/23 Therapeutic Interventions Therapeutic Interventions Home Exercise Program, Lymphedema Management,Manual Therapy,Patient/Caregiver Education,Self-Care/Home Management,Soft Tissue Mobilization,Taping, Therapeutic Exercises Next Visit Focus/Plan Next Note Type Treatment Note Next Visit Plan Assess response to compression garments, swell spot. Provide MLD, review HEP , perform lymphedema bandaging left UE with patient instruction for self bandaging .
--- NOTE | 2023-05-11 08:11 | PT-OP ANOTE ---
patient cancelled due to sick
--- NOTE | 2023-05-13 17:20 | PT.OTN ---
Current Diagnoses Malignant neoplasm of unspecified site of left female breast (05/13/23) Lymphedema, not elsewhere classified (05/13/23) Physical Therapy Treatment Note PT-OP-A Visit Information Start: 04/26/23 08:47 Freq: Status: Active Protocol: Document 05/13/23 13:48 SAK (Rec: 05/13/23 15:11 SAK [id number]) Out-Patient Physical Therapy Visit Information Visit Information Visit Type Treatment Note Visit Start Time 13:49 Visit Stop Time 15:05 Total Visit Minutes 76 Visit Number 2 Evaluation Information Evaluation Date 05/06/23 PT-OP-B Current Condition Start: 04/26/23 08:47 Freq: Status: Active Protocol: Document 05/06/23 08:07 SAK (Rec: 05/06/23 09:14 SAK [id number]) Current Condition History of Current Condition Onset Date Current Complaints left hand swelling History of Current Condition invasive lobular carcinoma left, s/p partial mastectomy with axillary dissection and radiation left breast finished July 2022, now on Letrozol., has had 2 episodes of left hand swelling after walking her dog holding onto the leash with left hand and dog pulling 5-6 months after surgery. Patient is right handed. Also reports left UE feels achy, heavy, and nerve pain and swelling under armpit . Still has numbness and tingly left fingers. Tried managing on her own, bought sleeve off [employer], hasn't seemed to help. No usual exercise except dog walking. Reports hasn't done any scar massage on mastectomy scar Treatment Goals Patient/Caregiver Goals Decrease lymphedema and be able to self-manage PT-OP-C Subjective Start: 04/26/23 08:47 Freq: Status: Active Protocol: Document 05/13/23 13:48 SAK (Rec: 05/13/23 15:11 SAK [id number]) OP-PT Subjective Patient Comments Patient Comments Wore sample glove and sleeve plus swell spot and a larger bra. Feels swelling is bit better. Is going to order sleeve, glove, and swell spot . To consider Prarie Wear bra . Has been doing self-massage . Patient Reported Progress Improving PT-OP-J Posture/Palpation/Skin Start: 04/26/23 08:47 Freq: Status: Active Protocol: Document 05/06/23 08:07 SAK (Rec: 12/07/23 09:47 [facility] [id number]) Skin Assessment Incisional Assessment Incision Appearance/Comments well healed, decreased scar mobility PT-OP-K Range of Motion Start: 04/26/23 08:47 Freq: Status: Active Protocol: Document 05/06/23 08:07 [facility] (Rec: 05/09/23 15:25 [facility] [id number]) Shoulder Goniometric Range of Motion Shoulder Left Active Flexion 155 Extension 20 Abduction 150 Horizontal Abduction 75 External Rotation at 45 degrees 50 Abduction Right Active Shoulder ROM WFL Yes PT-OP-N Lymphedema Start: 04/26/23 08:47 Freq: Status: Active Protocol: Document 05/13/23 13:48 [facility] (Rec: 05/13/23 15:11 [facility] [id number]) Lymphedema Measurements Upper Extremity Circumference Measurements Left Affected MCP 19.1 cm Dorsum of Hand 20.8 cm Wrist 18.5 cm 5 cm From Wrist Crease 19.4 cm 10 cm From Wrist Crease 23.2 cm 15 cm From Wrist Crease 26.4 cm 20 cm From Wrist Crease 26.7 cm 25 cm From Wrist Crease 28.8 cm 30 cm From Wrist Crease 27.8 cm 35 cm From Wrist Crease 29.8 cm 40 cm From Wrist Crease 32.1 cm Elbow Joint 26.7 cm - 104.7 107.3 Comments Lymphedema Comments decreased circumferential measurements today. PT-OP-Q Treatments Start: 04/26/23 08:47 Freq: Status: Active Protocol: Document 05/13/23 13:48 [facility] (Rec: 05/13/23 15:11 [facility] [id number]) Manual Therapy Treatment Soft Tissue Mobilization scar mob Body Location breast, subax Mobilization Type Instrument Assisted,Myofascial Release,Rolling Intensity/Depth mild to mod Body Position Hooklying Comments small suction tool breast tissue Body Location lateral to aereola Mobilization Type Other Intensity/Depth mild to mod Body Position Hooklying Comments to decrease tissue fibrosis. Encouraged to purchase swell spot to address breast tissue fibrosis and lateral subaxillary edema. Lymphedema Treatment Manual Lymphatic Drainage Location for left UE and subaxillary lymphedema Duration 30 min Comments review for patient self massage Lymphedema Wrapping Body Location left hand and UE Materials Tricofix size F, Elastomull finger wraps, Artiflex (2 rolls), Comprilan (6,8,10). Instructed to wear overnight if jose, move arm normally and do exercises. REmove if painful, too much pressure Other issued loaner compression glove and sleeve (Juzo 20-30 mm Hg), compression bra ( prarie wear) and swell spot Compression Garment Assessment Compression Garment Assessment Details further disussion, patient to order as above, has sizes PT-OP-T Assessment and Plan Start: 04/26/23 08:47 Freq: Status: Active Protocol: Document 05/13/23 13:48 [facility] (Rec: 05/13/23 15:11 [facility] [id number]) Physical Therapy Assessment Impairments Impairments Edema,Integument,Pain Goals Four Impairment dec left UE ROM with left chest soft tissue tightness Short Term Goal (STG) Patient to be instructed in HEP and self-massage STG Duration 06/13/23 Usp Goal (LTG) Patient to be independent in exercises and self-massage and demonstrate left shoulder ROM WNL to allow her to perform all usual activities LTG Duration 08/12/23 Three Impairment pain subaxillary region Impairment interrupts sleep Usp Goal (LTG) Decrease pain sufficient to allow patient to sleep through the night without waking due to pain LTG Duration 08/12/23 Two Impairment decreased scar mobility and tissue fibrosis left breast Usp Goal (LTG) Improve scar mobility left to WNL and decrease tissue fibrosis left breast from moderate to minimal LTG Duration 08/12/23 One Impairment lymphedema left UE and subaxillary area Short Term Goal (STG) Patient to be instructed in all aspects of lymphedema care to include skin care, elevation, manual lymphatic drainage, lymphedema exercises , and compression STG Duration 06/13/23 Usp Goal (LTG) Decrease lymphedema to a stable level (no increase or decrease greater than 1 cm over the course of 1 week) and patient to be independent with all aspects of lymphedema care including obtaining appropriate compression garments LTG Duration 08/12/23 Assessment Summary Assessment Noted decrease in circumferential measurements with patient self MLD and wearing compression, doing lymphedema exercises. PT applied bandaging with patient instruction and encouraged to watch [facility] video for self bandaging. Good compliance to self-care, noted good progress with rings fitting loser, notable decrease in edema. Physical Therapy Plan Frequency and Duration Frequency of Treatment 20 visits Duration of treatment (weeks) 12 Plan of Care Start Date 05/06/23 Plan of Care End Date 08/05/23 Therapeutic Interventions Therapeutic Interventions Home Exercise Program, Lymphedema Management,Manual Therapy,Patient/Caregiver Education,Self-Care/Home Management,Soft Tissue Mobilization,Taping, Therapeutic Exercises Next Visit Focus/Plan Next Note Type Treatment Note Next Visit Plan Continue CDT, ther ex and manual techniques to improve soft tissue mobility. REview self-bandaging, apply as indicated.
--- NOTE | 2023-06-09 15:59 | PT.OTN ---
Current Diagnoses Malignant neoplasm of unspecified site of left female breast (06/09/23) Lymphedema, not elsewhere classified (06/09/23) Physical Therapy Treatment Note PT-OP-A Visit Information Start: 04/26/23 08:47 Freq: Status: Active Protocol: Document 06/09/23 09:02 [facility] (Rec: 06/09/23 09:49 [facility] [id number]) Out-Patient Physical Therapy Visit Information Visit Information Visit Type Treatment Note Visit Start Time 09:03 Visit Stop Time 10:27 Total Visit Minutes 84 Visit Number 3 Evaluation Information Evaluation Date 05/06/23 Precautions Precautions breast cancer left, s/p partial mastectomy. PT-OP-B Current Condition Start: 04/26/23 08:47 Freq: Status: Active Protocol: Document 06/09/23 09:02 [facility] (Rec: 06/09/23 09:49 [facility] [id number]) Current Condition History of Current Condition Onset Date Current Complaints left hand swelling History of Current Condition invasive lobular carcinoma left, s/p partial mastectomy with axillary dissection and radiation left breast finished July 2022, now on Letrozol., has had 2 episodes of left hand swelling after walking her dog holding onto the leash with left hand and dog pulling 5-6 months after surgery. Patient is right handed. Also reports left UE feels achy, heavy, and nerve pain and swelling under armpit . Still has numbness and tingly left fingers. Tried managing on her own, bought sleeve off [employer], hasn't seemed to help. No usual exercise except dog walking. Reports hasn't done any scar massage on mastectomy scar PT-OP-C Subjective Start: 04/26/23 08:47 Freq: Status: Active Protocol: Document 06/09/23 09:02 [facility] (Rec: 06/09/23 09:49 [facility] [id number]) OP-PT Subjective Patient Comments Patient Comments Has been sick with vomiting, coughing. Kept bandaging on for most of the day after last session. Hasn't done any bandaging, wearing compression , exercising, or massaging for a few days due to feeling awful. Ordered and received compression glove and sleeve for left UE but hasn't worn yet. States she had to remove her rings because of inc swelling left hand. PT-OP-J Posture/Palpation/Skin Start: 04/26/23 08:47 Freq: Status: Active Protocol: Document 05/06/23 08:07 [facility] (Rec: 05/06/23 09:47 [facility] [id number]) Skin Assessment Incisional Assessment Incision Appearance/Comments well healed, decreased scar mobility PT-OP-K Range of Motion Start: 04/26/23 08:47 Freq: Status: Active Protocol: Document 05/06/23 08:07 SAK (Rec: 05/09/23 15:25 [facility] [id number]) Shoulder Goniometric Range of Motion Shoulder Left Active Flexion 155 Extension 20 Abduction 150 Horizontal Abduction 75 External Rotation at 45 degrees 50 Abduction Right Active Shoulder ROM WFL Yes PT-OP-N Lymphedema Start: 04/26/23 08:47 Freq: Status: Active Protocol: Document 06/09/23 09:02 [facility] (Rec: 06/09/23 09:49 [facility] [id number]) Lymphedema Measurements Upper Extremity Circumference Measurements Left Affected MCP 19.5 cm Dorsum of Hand 21.3 cm Wrist 19.6 cm 5 cm From Wrist Crease 19.8 cm 10 cm From Wrist Crease 23.4 cm 15 cm From Wrist Crease 26.8 cm 20 cm From Wrist Crease 27.2 cm 25 cm From Wrist Crease 26.8 cm 30 cm From Wrist Crease 27.3 cm 35 cm From Wrist Crease 27.7 cm 40 cm From Wrist Crease 29.4 cm 45 cm From Wrist Crease 33.4 cm Elbow Joint 27 cm - 104.4 107.7 PT-OP-Q Treatments Start: 04/26/23 08:47 Freq: Status: Active Protocol: Document 06/09/23 09:02 [facility] (Rec: 06/09/23 15:59 [facility] [id number]) Lymphedema Treatment Manual Lymphatic Drainage Location for left UE and subaxillary lymphedema Duration 60 Comments extra emphasis and time left hand after proximal clearing Lymphedema Wrapping Body Location left hand and UE Materials assisted patient with donning compression glove and sleeve left with patient demonstrating good understanding Other good fit of compression sleeve and glove, patient reports felt good. Instructed to wear during the day, may remove at night. Compression Garment Assessment Compression Garment Assessment Details as above. Patient has not obtained swell spot left; encouraged to obtain for left breast. Patient Education Compression Garments as above Other patient not feeling well, wearing mask, fell asleep during MLD PT-OP-T Assessment and Plan Start: 04/26/23 08:47 Freq: Status: Active Protocol: Document 06/09/23 09:02 [facility] (Rec: 06/09/23 15:59 [facility] [id number]) Physical Therapy Assessment Impairments Impairments Edema,Integument,Pain Goals Four Impairment dec left UE ROM with left chest soft tissue tightness Short Term Goal (STG) Patient to be instructed in HEP and self-massage 06/09/23: ongoing ex instruction and progression STG Duration 06/13/23 Penitentiary Goal (LTG) Patient to be independent in exercises and self-massage and demonstrate left shoulder ROM WNL to allow her to perform all usual activities LTG Duration 08/12/23 Three Impairment pain subaxillary region Impairment interrupts sleep Technical Customer Support Specialist Goal (LTG) Decrease pain sufficient to allow patient to sleep through the night without waking due to pain 06/09/23: goal progress LTG Duration 08/12/23 Two Impairment decreased scar mobility and tissue fibrosis left breast Technical Customer Support Specialist Goal (LTG) Improve scar mobility left to WNL and decrease tissue fibrosis left breast from moderate to minimal 06/09/23: goal progress, feel will benefit highly from swell spot but hasnpt obtained yet LTG Duration 08/12/23 One Impairment lymphedema left UE and subaxillary area Short Term Goal (STG) Patient to be instructed in all aspects of lymphedema care to include skin care, elevation, manual lymphatic drainage, lymphedema exercises , and compression 06/09/23: goal met STG Duration goal met Technical Customer Support Specialist Goal (LTG) Decrease lymphedema to a stable level (no increase or decrease greater than 1 cm over the course of 1 week) and patient to be independent with all aspects of lymphedema care including obtaining appropriate compression garments LTG Duration 08/12/23 Assessment Summary Assessment Increase in circumferential measurements due to patien ill , not feeling well enough to perform any aspects of lymphedema care. Brought new compression glove and sleeve and patient was instructed in donning. Good fit of both with patient reporting they feel good. Patient demonstrated good understanding of instruction to wear during the day, remove at night. Bandage if experiences flare of edema ( not feeling well enough to be bandaged today.) Physical Therapy Plan Frequency and Duration Frequency of Treatment 20 visits Duration of treatment (weeks) 12 Plan of Care Start Date 05/06/23 Plan of Care End Date 08/05/23 Therapeutic Interventions Therapeutic Interventions Home Exercise Program, Lymphedema Management,Manual Therapy,Patient/Caregiver Education,Self-Care/Home Management,Soft Tissue Mobilization,Taping, Therapeutic Exercises Next Visit Focus/Plan Next Note Type Treatment Note Next Visit Plan Continue CDT, ther ex and manual techniques to improve soft tissue mobility. REview self-bandaging, apply as indicated. Ther ex for left shoulder ROM and to improve soft tissue mobility to improve lymphatic flow
--- NOTE | 2023-06-14 08:03 | PT-OP ANOTE ---
cancelled due to ill
--- NOTE | 2023-06-16 10:14 | PT.OTN ---
Current Diagnoses Malignant neoplasm of unspecified site of left female breast (06/16/23) Lymphedema, not elsewhere classified (06/16/23) Physical Therapy Treatment Note PT-OP-A Visit Information Start: 04/26/23 08:47 Freq: Status: Active Protocol: Document 06/16/23 09:00 [facility] (Rec: 06/16/23 09:13 [facility] [id number]) Out-Patient Physical Therapy Visit Information Visit Information Visit Type Treatment Note Visit Note has to leave early for another appointment Visit Start Time 09:00 Visit Stop Time 01:00 Total Visit Minutes 60 Visit Number 4 Evaluation Information Evaluation Date 05/06/23 Precautions Precautions breast cancer left, s/p partial mastectomy. PT-OP-B Current Condition Start: 04/26/23 08:47 Freq: Status: Active Protocol: Document 06/16/23 09:00 SAK (Rec: 06/16/23 09:13 [facility] [id number]) Current Condition History of Current Condition Onset Date Current Complaints left hand swelling History of Current Condition invasive lobular carcinoma left, s/p partial mastectomy with axillary dissection and radiation left breast finished July 2022, now on Letrozol., has had 2 episodes of left hand swelling after walking her dog holding onto the leash with left hand and dog pulling 5-6 months after surgery. Patient is right handed. Also reports left UE feels achy, heavy, and nerve pain and swelling under armpit . Still has numbness and tingly left fingers. Tried managing on her own, bought sleeve off [employer], hasn't seemed to help. No usual exercise except dog walking. Reports hasn't done any scar massage on mastectomy scar PT-OP-C Subjective Start: 04/26/23 08:47 Freq: Status: Active Protocol: Document 06/16/23 09:00 SAK (Rec: 06/16/23 09:13 [facility] [id number]) OP-PT Subjective Patient Comments Patient Comments A little puffy in hand, has been wearing compression daily , achy breast. Has not gotten a swell spot. Doing massage, but not great. PT-OP-J Posture/Palpation/Skin Start: 04/26/23 08:47 Freq: Status: Active Protocol: Document 05/06/23 08:07 SAK (Rec: 05/06/23 09:47 [facility] [id number]) Skin Assessment Incisional Assessment Incision Appearance/Comments well healed, decreased scar mobility PT-OP-K Range of Motion Start: 04/26/23 08:47 Freq: Status: Active Protocol: Document 05/06/23 08:07 [facility] (Rec: 05/09/23 15:25 [facility] [id number]) Shoulder Goniometric Range of Motion Shoulder Left Active Flexion 155 Extension 20 Abduction 150 Horizontal Abduction 75 External Rotation at 45 degrees 50 Abduction Right Active Shoulder ROM WFL Yes PT-OP-N Lymphedema Start: 04/26/23 08:47 Freq: Status: Active Protocol: Document 06/16/23 09:00 [facility] (Rec: 06/16/23 09:13 [facility] [id number]) Lymphedema Measurements Upper Extremity Circumference Measurements Left Affected MCP 19.3 cm Dorsum of Hand 20.4 cm Wrist 18.8 cm 5 cm From Wrist Crease 19.6 cm 10 cm From Wrist Crease 22.7 cm 15 cm From Wrist Crease 28.6 cm 20 cm From Wrist Crease 26.8 cm 25 cm From Wrist Crease 26.8 cm 30 cm From Wrist Crease 27.3 cm 35 cm From Wrist Crease 27.8 cm 40 cm From Wrist Crease 30.9 cm 45 cm From Wrist Crease 33.9 cm - 104 108.1 PT-OP-Q Treatments Start: 04/26/23 08:47 Freq: Status: Active Protocol: Document 06/16/23 09:00 [facility] (Rec: 06/16/23 09:13 [facility] [id number]) Manual Therapy Treatment Soft Tissue Mobilization scar mob Body Location breast, subax Mobilization Type Instrument Assisted,Myofascial Release,Rolling Intensity/Depth mild to mod Body Position Hooklying Comments small suction tool breast tissue Body Location lateral to aereola Mobilization Type Other Intensity/Depth mild to mod Body Position Hooklying Comments to decrease tissue fibrosis. Encouraged to purchase swell spot to address breast tissue fibrosis and lateral subaxillary edema. Lymphedema Treatment Manual Lymphatic Drainage Location for left UE and subaxillary lymphedema Duration 45 Comments extra emphasis and time left hand after proximal clearing Lymphedema Wrapping Body Location left hand and UE Materials assisted patient with donning compression glove and sleeve left with patient demonstrating good understanding Other good fit of compression sleeve and glove, patient reports felt good. Instructed to wear during the day, may remove at night. Compression Garment Assessment Compression Garment Assessment Details as above. Patient has not obtained swell spot left; encouraged to obtain for left breast. PT-OP-R Modalities Start: 04/26/23 08:47 Freq: Status: Active Protocol: Document 06/16/23 09:00 [facility] (Rec: 06/16/23 10:12 [facility] [id number]) Compression Pump Treatment Treatment Location Left Arm Pressure Amount (mmHg) (mmHG) 35 Treatment Duration (minutes) 15 Treatment Tolerance Good Treatment Comments Patient education during pump regarding compression options, contacting insurance regarding potential coverage. Also STM left breast and incision during pump PT-OP-T Assessment and Plan Start: 04/26/23 08:47 Freq: Status: Active Protocol: Document 06/16/23 09:00 [facility] (Rec: 06/16/23 09:13 [facility] [id number]) Physical Therapy Assessment Impairments Impairments Edema,Integument,Pain Goals Four Impairment dec left UE ROM with left chest soft tissue tightness Short Term Goal (STG) Patient to be instructed in HEP and self-massage 06/09/23: ongoing ex instruction and progression STG Duration 06/13/23 Senior Care Goal (LTG) Patient to be independent in exercises and self-massage and demonstrate left shoulder ROM WNL to allow her to perform all usual activities LTG Duration 08/12/23 Three Impairment pain subaxillary region Impairment interrupts sleep Central Office Repairer Supervisor Goal (LTG) Decrease pain sufficient to allow patient to sleep through the night without waking due to pain 06/09/23: goal progress LTG Duration 08/12/23 Two Impairment decreased scar mobility and tissue fibrosis left breast Senior Care Goal (LTG) Improve scar mobility left to WNL and decrease tissue fibrosis left breast from moderate to minimal 06/09/23: goal progress, feel will benefit highly from swell spot but hasnpt obtained yet LTG Duration 08/12/23 One Impairment lymphedema left UE and subaxillary area Short Term Goal (STG) Patient to be instructed in all aspects of lymphedema care to include skin care, elevation, manual lymphatic drainage, lymphedema exercises , and compression 06/09/23: goal met STG Duration goal met Central Office Repairer Supervisor Goal (LTG) Decrease lymphedema to a stable level (no increase or decrease greater than 1 cm over the course of 1 week) and patient to be independent with all aspects of lymphedema care including obtaining appropriate compression garments LTG Duration 08/12/23 Assessment Summary Assessment Decreased circumferential measurements, good compliance to wearing compression, doing exercises and MLD though reports feels MLD in PT more helpful, receptive to considering compression pump for home lymphedema management . Physical Therapy Plan Frequency and Duration Frequency of Treatment 20 visits Duration of treatment (weeks) 12 Plan of Care Start Date 05/06/23 Plan of Care End Date 08/05/23 Therapeutic Interventions Therapeutic Interventions Home Exercise Program, Lymphedema Management,Manual Therapy,Patient/Caregiver Education,Self-Care/Home Management,Soft Tissue Mobilization,Taping, Therapeutic Exercises Next Visit Focus/Plan Next Note Type Treatment Note Next Visit Plan Continue CDT, ther ex and manual techniques to improve soft tissue mobility. REview self-bandaging, apply as indicated. Ther ex for left shoulder ROM and to improve soft tissue mobility to improve lymphatic flow
--- NOTE | 2023-06-21 08:06 | PT-OP ANOTE ---
cancelled via pt connect
--- NOTE | 2023-06-29 16:00 | PT.OTN ---
Current Diagnoses Malignant neoplasm of unspecified site of left female breast (06/29/23) Lymphedema, not elsewhere classified (06/29/23) Physical Therapy Treatment Note PT-OP-A Visit Information Start: 04/26/23 08:47 Freq: Status: Active Protocol: Document 06/29/23 10:26 SAK (Rec: 06/29/23 10:38 [facility] [id number]) Out-Patient Physical Therapy Visit Information Visit Information Visit Type Treatment Note Visit Note wearing glove and sleeve some of the time, having less swelling. Doing exercises. Wore swell spot loaner, can wear for a Visit Start Time 10:30 Visit Stop Time 11:51 Visit Number 5 Evaluation Information Evaluation Date 05/06/23 Precautions Precautions breast cancer left, s/p partial mastectomy. PT-OP-B Current Condition Start: 04/26/23 08:47 Freq: Status: Active Protocol: Document 06/29/23 10:26 SAK (Rec: 06/29/23 10:38 [facility] [id number]) Current Condition History of Current Condition Onset Date Current Complaints left hand swelling History of Current Condition invasive lobular carcinoma left, s/p partial mastectomy with axillary dissection and radiation left breast finished July 2022, now on Letrozol., has had 2 episodes of left hand swelling after walking her dog holding onto the leash with left hand and dog pulling 5-6 months after surgery. Patient is right handed. Also reports left UE feels achy, heavy, and nerve pain and swelling under armpit . Still has numbness and tingly left fingers. Tried managing on her own, bought sleeve off [employer], hasn't seemed to help. No usual exercise except dog walking. Reports hasn't done any scar massage on mastectomy scar PT-OP-C Subjective Start: 04/26/23 08:47 Freq: Status: Active Protocol: Document 06/16/23 09:00 SAK (Rec: 06/16/23 09:13 [facility] [id number]) OP-PT Subjective Patient Comments Patient Comments A little puffy in hand, has been wearing compression daily , achy breast. Has not gotten a swell spot. Doing massage, but not great. PT-OP-J Posture/Palpation/Skin Start: 04/26/23 08:47 Freq: Status: Active Protocol: Document 05/06/23 08:07 SAK (Rec: 12/07/23 09:47 [facility] [id number]) Skin Assessment Incisional Assessment Incision Appearance/Comments well healed, decreased scar mobility PT-OP-K Range of Motion Start: 04/26/23 08:47 Freq: Status: Active Protocol: Document 05/06/23 08:07 SAK (Rec: 05/09/23 15:25 SAK [id number]) Shoulder Goniometric Range of Motion Shoulder Left Active Flexion 155 Extension 20 Abduction 150 Horizontal Abduction 75 External Rotation at 45 degrees 50 Abduction Right Active Shoulder ROM WFL Yes PT-OP-N Lymphedema Start: 04/26/23 08:47 Freq: Status: Active Protocol: Document 06/29/23 10:26 [facility] (Rec: 06/29/23 10:47 [facility] [id number]) Lymphedema Measurements Upper Extremity Circumference Measurements Left Affected MCP 19.3 cm Dorsum of Hand 21 cm Wrist 19.8 cm 5 cm From Wrist Crease 19.7 cm 10 cm From Wrist Crease 23.4 cm 15 cm From Wrist Crease 26.8 cm 20 cm From Wrist Crease 27.9 cm 25 cm From Wrist Crease 28.3 cm 30 cm From Wrist Crease 28.4 cm 35 cm From Wrist Crease 30.7 cm 40 cm From Wrist Crease 32.1 cm 45 cm From Wrist Crease 34.3 cm Elbow Joint 27.7 cm - 103.4 108.4 PT-OP-Q Treatments Start: 04/26/23 08:47 Freq: Status: Active Protocol: Document 06/29/23 10:26 [facility] (Rec: 06/29/23 10:38 [facility] [id number]) Manual Therapy Treatment Soft Tissue Mobilization scar mob Body Location breast, subax Mobilization Type Instrument Assisted,Myofascial Release,Rolling Intensity/Depth mild to mod Body Position Hooklying Comments small suction tool breast tissue Body Location lateral to aereola Mobilization Type Other Intensity/Depth mild to mod Body Position Hooklying Comments to decrease tissue fibrosis. Encouraged to purchase swell spot to address breast tissue fibrosis and lateral subaxillary edema. Lymphedema Treatment Manual Lymphatic Drainage Location for left UE and subaxillary lymphedema Duration 45 Comments extra emphasis and time left hand after proximal clearing Lymphedema Wrapping Body Location left hand and UE Materials assisted patient with donning compression glove and sleeve left with patient demonstrating good understanding Other good fit of compression sleeve and glove, patient reports felt good. Instructed to wear during the day, may remove at night. PT-OP-R Modalities Start: 04/26/23 08:47 Freq: Status: Active Protocol: Document 06/29/23 10:26 [facility] (Rec: 06/29/23 10:38 [facility] [id number]) Compression Pump Treatment Treatment Location Left Arm Pressure Amount (mmHg) (mmHG) 35 Treatment Tolerance Good Treatment Comments Patient education during pump regarding compression options, contacting insurance regarding potential coverage. Also STM left breast and incision during pump PT-OP-T Assessment and Plan Start: 04/26/23 08:47 Freq: Status: Active Protocol: Document 06/29/23 10:26 [facility] (Rec: 06/29/23 10:38 [facility] [id number]) Physical Therapy Assessment Goals Four Impairment dec left UE ROM with left chest soft tissue tightness Short Term Goal (STG) Patient to be instructed in HEP and self-massage 06/09/23: ongoing ex instruction and progression STG Duration 06/13/23 Long-Term Goal (LTG) Patient to be independent in exercises and self-massage and demonstrate left shoulder ROM WNL to allow her to perform all usual activities LTG Duration 08/12/23 Three Impairment pain subaxillary region Impairment interrupts sleep Shipping Coordinator Goal (LTG) Decrease pain sufficient to allow patient to sleep through the night without waking due to pain 06/09/23: goal progress LTG Duration 08/12/23 Two Impairment decreased scar mobility and tissue fibrosis left breast Shipping Coordinator Goal (LTG) Improve scar mobility left to WNL and decrease tissue fibrosis left breast from moderate to minimal 06/09/23: goal progress, feel will benefit highly from swell spot but hasnpt obtained yet LTG Duration 08/12/23 One Impairment lymphedema left UE and subaxillary area Short Term Goal (STG) Patient to be instructed in all aspects of lymphedema care to include skin care, elevation, manual lymphatic drainage, lymphedema exercises , and compression 06/09/23: goal met STG Duration goal met Long-Term Goal (LTG) Decrease lymphedema to a stable level (no increase or decrease greater than 1 cm over the course of 1 week) and patient to be independent with all aspects of lymphedema care including obtaining appropriate compression garments LTG Duration 08/12/23 Assessment Summary Assessment Patient started PT for lymphedema `05/06/23. Has completed greater than 30 days of conservative therapy including elevation, skin care , manual lymphatic drainage, lymphedema exercise, and compression. Patient circumferential measurements were increased today, with her reporting difficulty self- managing, especially with self MLD on lateral and posterior thoracic region. She is wearing her compression glove and sleeve consistently but may obtain larger size glove due to discomfort. Did not wear to PT today. Has been wearing loaner swell spot in bra and is going to order larger one for improved comfort and better coverage lateral and posterior thoracic region. Further discussion of compression options for trunk. Trial kinesiotape today left lateral breast, subaxillary region and posterior thorax with base at spine. Feel she would benefit highly from the use of a sequential pneumatic pump in the home to help her self- manage her lymphedema, especially in harder to reach areas such as her posterior thoracic region. Patient is receptive and tolerated a trial today well. Recommend Arm-plus sleeve for best treatment with sequential pneumatic pump. Physical Therapy Plan Frequency and Duration Frequency of Treatment 20 visits Duration of treatment (weeks) 12 Plan of Care Start Date 05/06/23 Plan of Care End Date 08/05/23 Therapeutic Interventions Therapeutic Interventions Home Exercise Program, Lymphedema Management,Manual Therapy,Patient/Caregiver Education,Self-Care/Home Management,Soft Tissue Mobilization,Taping, Therapeutic Exercises Next Visit Focus/Plan Next Note Type Treatment Note Next Visit Plan Continue CDT. Follow-up with patient's self management of lymphedema. Discuss POC, schedule further appointments if indicated. ASsist patient in obtaining sequential pneumatic pump to assist her in self care of her lymphedema left UE, subaxillary region, and lateral trunk.
--- NOTE | 2023-06-29 16:53 | PT.OTN ---
Current Diagnoses Malignant neoplasm of unspecified site of left female breast (06/29/23) Lymphedema, not elsewhere classified (06/29/23) Physical Therapy Treatment Note PT-OP-A Visit Information Start: 04/26/23 08:47 Freq: Status: Active Protocol: Document 06/29/23 10:26 SAK (Rec: 06/29/23 10:38 [facility] [id number]) Out-Patient Physical Therapy Visit Information Visit Information Visit Type Treatment Note Visit Note wearing glove and sleeve some of the time, having less swelling. Doing exercises. Wore swell spot loaner, can wear for a Visit Start Time 10:30 Visit Stop Time 11:51 Visit Number 5 Evaluation Information Evaluation Date 05/06/23 Precautions Precautions breast cancer left, s/p partial mastectomy. PT-OP-B Current Condition Start: 04/26/23 08:47 Freq: Status: Active Protocol: Document 06/29/23 10:26 SAK (Rec: 06/29/23 10:38 [facility] [id number]) Current Condition History of Current Condition Onset Date Current Complaints left hand swelling History of Current Condition invasive lobular carcinoma left, s/p partial mastectomy with axillary dissection and radiation left breast finished July 2022, now on Letrozol., has had 2 episodes of left hand swelling after walking her dog holding onto the leash with left hand and dog pulling 5-6 months after surgery. Patient is right handed. Also reports left UE feels achy, heavy, and nerve pain and swelling under armpit . Still has numbness and tingly left fingers. Tried managing on her own, bought sleeve off [employer], hasn't seemed to help. No usual exercise except dog walking. Reports hasn't done any scar massage on mastectomy scar PT-OP-C Subjective Start: 04/26/23 08:47 Freq: Status: Active Protocol: Document 06/16/23 09:00 SAK (Rec: 06/16/23 09:13 [facility] [id number]) OP-PT Subjective Patient Comments Patient Comments A little puffy in hand, has been wearing compression daily , achy breast. Has not gotten a swell spot. Doing massage, but not great. PT-OP-J Posture/Palpation/Skin Start: 04/26/23 08:47 Freq: Status: Active Protocol: Document 05/06/23 08:07 SAK (Rec: 12/07/23 09:47 [facility] [id number]) Skin Assessment Incisional Assessment Incision Appearance/Comments well healed, decreased scar mobility PT-OP-K Range of Motion Start: 04/26/23 08:47 Freq: Status: Active Protocol: Document 05/06/23 08:07 SAK (Rec: 05/09/23 15:25 SAK [id number]) Shoulder Goniometric Range of Motion Shoulder Left Active Flexion 155 Extension 20 Abduction 150 Horizontal Abduction 75 External Rotation at 45 degrees 50 Abduction Right Active Shoulder ROM WFL Yes PT-OP-N Lymphedema Start: 04/26/23 08:47 Freq: Status: Active Protocol: Document 06/29/23 10:26 [facility] (Rec: 06/29/23 10:47 [facility] [id number]) Lymphedema Measurements Upper Extremity Circumference Measurements Left Affected MCP 19.3 cm Dorsum of Hand 21 cm Wrist 19.8 cm 5 cm From Wrist Crease 19.7 cm 10 cm From Wrist Crease 23.4 cm 15 cm From Wrist Crease 26.8 cm 20 cm From Wrist Crease 27.9 cm 25 cm From Wrist Crease 28.3 cm 30 cm From Wrist Crease 28.4 cm 35 cm From Wrist Crease 30.7 cm 40 cm From Wrist Crease 32.1 cm 45 cm From Wrist Crease 34.3 cm Elbow Joint 27.7 cm - 103.4 108.4 PT-OP-Q Treatments Start: 04/26/23 08:47 Freq: Status: Active Protocol: Document 06/29/23 10:26 [facility] (Rec: 06/29/23 10:38 [facility] [id number]) Manual Therapy Treatment Soft Tissue Mobilization scar mob Body Location breast, subax Mobilization Type Instrument Assisted,Myofascial Release,Rolling Intensity/Depth mild to mod Body Position Hooklying Comments small suction tool breast tissue Body Location lateral to aereola Mobilization Type Other Intensity/Depth mild to mod Body Position Hooklying Comments to decrease tissue fibrosis. Encouraged to purchase swell spot to address breast tissue fibrosis and lateral subaxillary edema. Lymphedema Treatment Manual Lymphatic Drainage Location for left UE and subaxillary lymphedema Duration 45 Comments extra emphasis and time left hand after proximal clearing Lymphedema Wrapping Body Location left hand and UE Materials assisted patient with donning compression glove and sleeve left with patient demonstrating good understanding Other good fit of compression sleeve and glove, patient reports felt good. Instructed to wear during the day, may remove at night. PT-OP-R Modalities Start: 04/26/23 08:47 Freq: Status: Active Protocol: Document 06/29/23 10:26 [facility] (Rec: 06/29/23 10:38 [facility] [id number]) Compression Pump Treatment Treatment Location Left Arm Pressure Amount (mmHg) (mmHG) 35 Treatment Tolerance Good Treatment Comments Patient education during pump regarding compression options, contacting insurance regarding potential coverage. Also STM left breast and incision during pump PT-OP-T Assessment and Plan Start: 04/26/23 08:47 Freq: Status: Active Protocol: Document 06/29/23 10:26 [facility] (Rec: 06/29/23 10:38 [facility] [id number]) Physical Therapy Assessment Goals Four Impairment dec left UE ROM with left chest soft tissue tightness Short Term Goal (STG) Patient to be instructed in HEP and self-massage 06/09/23: ongoing ex instruction and progression STG Duration 06/13/23 Care Home Goal (LTG) Patient to be independent in exercises and self-massage and demonstrate left shoulder ROM WNL to allow her to perform all usual activities LTG Duration 08/12/23 Three Impairment pain subaxillary region Impairment interrupts sleep Gizzard Peeler Goal (LTG) Decrease pain sufficient to allow patient to sleep through the night without waking due to pain 06/09/23: goal progress LTG Duration 08/12/23 Two Impairment decreased scar mobility and tissue fibrosis left breast Gizzard Peeler Goal (LTG) Improve scar mobility left to WNL and decrease tissue fibrosis left breast from moderate to minimal 06/09/23: goal progress, feel will benefit highly from swell spot but hasnpt obtained yet LTG Duration 08/12/23 One Impairment lymphedema left UE and subaxillary area Short Term Goal (STG) Patient to be instructed in all aspects of lymphedema care to include skin care, elevation, manual lymphatic drainage, lymphedema exercises , and compression 06/09/23: goal met STG Duration goal met Care Home Goal (LTG) Decrease lymphedema to a stable level (no increase or decrease greater than 1 cm over the course of 1 week) and patient to be independent with all aspects of lymphedema care including obtaining appropriate compression garments LTG Duration 08/12/23 Assessment Summary Assessment Patient circumferential measurements were increased today, with her reporting difficulty self-managing, especially with self MLD on lateral and posterior thoracic region. She is wearing her compression glove and sleeve consistently but may obtain larger size glove due to discomfort. Did not wear to PT today. Has been wearing loaner swell spot in bra and is going to order larger one for improved comfort and better coverage lateral and posterior thoracic region. Further discussion of compression options for trunk. Trial kinesiotape today left lateral breast, subaxillary region and posterior thorax with base at spine. Feel she would benefit highly from the use of a sequential pneumatic pump in the home to help her self- manage her lymphedema, especially in harder to reach areas such as her posterior thoracic region. Patient is receptive and tolerated a trial today well. Recommend Arm-plus sleeve for best treatment with sequential pneumatic pump. Physical Therapy Plan Frequency and Duration Frequency of Treatment 20 visits Duration of treatment (weeks) 12 Plan of Care Start Date 05/06/23 Plan of Care End Date 08/05/23 Therapeutic Interventions Therapeutic Interventions Home Exercise Program, Lymphedema Management,Manual Therapy,Patient/Caregiver Education,Self-Care/Home Management,Soft Tissue Mobilization,Taping, Therapeutic Exercises Next Visit Focus/Plan Next Note Type Treatment Note Next Visit Plan Continue CDT. Follow-up with patient's self management of lymphedema. Discuss POC, schedule further appointments if indicated. ASsist patient in obtaining sequential pneumatic pump to assist her in self care of her lymphedema left UE, subaxillary region, and lateral trunk.
--- NOTE | 2023-07-13 15:29 | PT.OTN ---
Current Diagnoses Malignant neoplasm of unspecified site of left female breast (07/13/23) Lymphedema, not elsewhere classified (07/13/23) Physical Therapy Treatment Note PT-OP-A Visit Information Start: 04/26/23 08:47 Freq: Status: Active Protocol: Document 07/13/23 14:37 SAK (Rec: 07/13/23 15:22 SAK [id number]) Out-Patient Physical Therapy Visit Information Visit Information Visit Type Treatment Note Visit Start Time 14:38 Visit Stop Time 15:16 Visit Number 6 Evaluation Information Evaluation Date 05/06/23 Precautions Precautions breast cancer left, s/p partial mastectomy. PT-OP-B Current Condition Start: 04/26/23 08:47 Freq: Status: Active Protocol: Document 07/13/23 14:37 SAK (Rec: 07/13/23 15:22 [facility] [id number]) Current Condition History of Current Condition Onset Date Current Complaints left hand swelling History of Current Condition invasive lobular carcinoma left, s/p partial mastectomy with axillary dissection and radiation left breast finished July 2022, now on Letrozol., has had 2 episodes of left hand swelling after walking her dog holding onto the leash with left hand and dog pulling 5-6 months after surgery. Patient is right handed. Also reports left UE feels achy, heavy, and nerve pain and swelling under armpit . Still has numbness and tingly left fingers. Tried managing on her own, bought sleeve off [employer], hasn't seemed to help. No usual exercise except dog walking. Reports hasn't done any scar massage on mastectomy scar PT-OP-C Subjective Start: 04/26/23 08:47 Freq: Status: Active Protocol: Document 07/13/23 14:37 SAK (Rec: 07/13/23 15:22 [facility] [id number]) OP-PT Subjective Patient Comments Patient Comments Still working on getting correct swell spot size that works for her. Got better fitting gauntlet (M), Wearing regular sports bra with swell spot. Lateral trunk continues to be the most sore. PT-OP-J Posture/Palpation/Skin Start: 04/26/23 08:47 Freq: Status: Active Protocol: Document 05/06/23 08:07 SAK (Rec: 05/06/23 09:47 [facility] [id number]) Skin Assessment Incisional Assessment Incision Appearance/Comments well healed, decreased scar mobility PT-OP-K Range of Motion Start: 04/26/23 08:47 Freq: Status: Active Protocol: Document 05/06/23 08:07 [facility] (Rec: 05/09/23 15:25 [facility] [id number]) Shoulder Goniometric Range of Motion Shoulder Left Active Flexion 155 Extension 20 Abduction 150 Horizontal Abduction 75 External Rotation at 45 degrees 50 Abduction Right Active Shoulder ROM WFL Yes PT-OP-N Lymphedema Start: 04/26/23 08:47 Freq: Status: Active Protocol: Document 07/13/23 14:37 [facility] (Rec: 07/13/23 15:22 [facility] [id number]) Lymphedema Measurements Upper Extremity Circumference Measurements Left Affected MCP 19.2 cm Dorsum of Hand 21.7 cm Wrist 19.7 cm 5 cm From Wrist Crease 19.8 cm 10 cm From Wrist Crease 23 cm 15 cm From Wrist Crease 26.6 cm 20 cm From Wrist Crease 26.7 cm 25 cm From Wrist Crease 27.5 cm 30 cm From Wrist Crease 27.8 cm 35 cm From Wrist Crease 30.6 cm 40 cm From Wrist Crease 33.5 cm 45 cm From Wrist Crease 34.3 cm Elbow Joint 26.8 cm - 102.9 108.6 PT-OP-Q Treatments Start: 04/26/23 08:47 Freq: Status: Active Protocol: Document 07/13/23 14:37 [facility] (Rec: 07/13/23 15:29 [facility] [id number]) Lymphedema Treatment Compression Garment Assessment Compression Garment Assessment Details Has obtained size M gauntlet with improved fit. Has compression sleeve. Has tried a couple sizes of swell spots but hasn't found right size yet. Patient Education Other Instruction in set up and use of Airos 6 sequential pneumatic pump with ArmPlus sleeve. Patient demonstrated good understanding, was issued to her for home use. PT-OP-R Modalities Start: 04/26/23 08:47 Freq: Status: Active Protocol: Document 06/29/23 10:26 [facility] (Rec: 06/29/23 10:38 [facility] [id number]) Compression Pump Treatment Treatment Location Left Arm Pressure Amount (mmHg) (mmHG) 35 Treatment Tolerance Good Treatment Comments Patient education during pump regarding compression options, contacting insurance regarding potential coverage. Also STM left breast and incision during pump PT-OP-T Assessment and Plan Start: 04/26/23 08:47 Freq: Status: Active Protocol: Document 07/13/23 14:37 [facility] (Rec: 07/13/23 15:22 [facility] [id number]) Physical Therapy Assessment Goals Four Impairment dec left UE ROM with left chest soft tissue tightness Short Term Goal (STG) Patient to be instructed in HEP and self-massage 06/09/23: ongoing ex instruction and progression 07/13/23: goal met STG Duration goal met Senior Living Goal (LTG) Patient to be independent in exercises and self-massage and demonstrate left shoulder ROM WNL to allow her to perform all usual activities LTG Duration 08/12/23 Three Impairment pain subaxillary region Impairment interrupts sleep Physical Metallurgist Goal (LTG) Decrease pain sufficient to allow patient to sleep through the night without waking due to pain 06/09/23: goal progress 07/13/23: pain level 08/07 LTG Duration 08/12/23 Two Impairment decreased scar mobility and tissue fibrosis left breast Senior Living Goal (LTG) Improve scar mobility left to WNL and decrease tissue fibrosis left breast from moderate to minimal 06/09/23: goal progress, feel will benefit highly from swell spot but hasnpt obtained yet 07/13/23: goal progress, still working to obtain most comfortable size swell spot LTG Duration 08/12/23 One Impairment lymphedema left UE and subaxillary area Short Term Goal (STG) Patient to be instructed in all aspects of lymphedema care to include skin care, elevation, manual lymphatic drainage, lymphedema exercises , and compression 06/09/23: goal met STG Duration goal met Senior Living Goal (LTG) Decrease lymphedema to a stable level (no increase or decrease greater than 1 cm over the course of 1 week) and patient to be independent with all aspects of lymphedema care including obtaining appropriate compression garments LTG Duration 08/12/23 Assessment Summary Assessment Patient demonstrated good understanding of use of Airos 6 compression pump with ArmPlus sleeve. issued to her for home use. Paperwork completed. Patient has follow -up with PT in a few weeks to assure compliance with self- care program, problem solve any additional issues. Physical Therapy Plan Frequency and Duration Frequency of Treatment 20 visits Duration of treatment (weeks) 12 Plan of Care Start Date 05/06/23 Plan of Care End Date 08/05/23 Therapeutic Interventions Therapeutic Interventions Home Exercise Program, Lymphedema Management,Manual Therapy,Patient/Caregiver Education,Self-Care/Home Management,Soft Tissue Mobilization,Taping, Therapeutic Exercises Next Visit Focus/Plan Next Note Type Treatment Note Next Visit Plan Follow up to answer any questions, assure compliance with all aspects of lymphedema care. ASsess compression garments. Take circumferential measurements. Anticipate discharge to self- care at that time pending any other PT needs related to lymphedema.
--- NOTE | 2023-07-13 16:45 | PT.OTRE ---
Current Diagnoses Malignant neoplasm of unspecified site of left female breast (07/13/23) Lymphedema, not elsewhere classified (07/13/23) Past Medical History (Last Reviewed 10/31/22 @ 04:48 by Will Forrest DO) Obstructive sleep apnea Visit Care Team Role Provider Type Ania Fagan PA-C Family Provider [employer] Administrator Primary Care Provider Specialty: Medical Address: [address] [place], [address] Email: Sheldon Rosario MD Attending Provider Non-Staff Referring Provider Specialty: Medical Address: [address] [place] [address], [place], [address] Email: Physical Therapy Re-Evaluation PT-OP-A Visit Information Start: 04/26/23 08:47 Freq: Status: Active Protocol: Document 07/13/23 14:37 SAK (Rec: 07/13/23 15:22 SAK [id number]) Out-Patient Physical Therapy Visit Information Visit Information Visit Type Treatment Note Visit Start Time 14:38 Visit Stop Time 15:16 Visit Number 6 Evaluation Information Evaluation Date 05/06/23 Precautions Precautions breast cancer left, s/p partial mastectomy. PT-OP-B Current Condition Start: 04/26/23 08:47 Freq: Status: Active Protocol: Document 07/13/23 14:37 SAK (Rec: 07/13/23 15:22 SAK [id number]) Current Condition History of Current Condition Onset Date Current Complaints left hand swelling History of Current Condition invasive lobular carcinoma left, s/p partial mastectomy with axillary dissection and radiation left breast finished July 2022, now on Letrozol., has had 2 episodes of left hand swelling after walking her dog holding onto the leash with left hand and dog pulling 5-6 months after surgery. Patient is right handed. Also reports left UE feels achy, heavy, and nerve pain and swelling under armpit . Still has numbness and tingly left fingers. Tried managing on her own, bought sleeve off [employer], hasn't seemed to help. No usual exercise except dog walking. Reports hasn't done any scar massage on mastectomy scar PT-OP-C Subjective Start: 04/26/23 08:47 Freq: Status: Active Protocol: Document 07/13/23 14:37 SAK (Rec: 07/13/23 15:22 [facility] [id number]) OP-PT Subjective Patient Comments Patient Comments Still working on getting correct swell spot size that works for her. Got better fitting gauntlet (M), Wearing regular sports bra with swell spot. Lateral trunk continues to be the most sore. PT-OP-J Posture/Palpation/Skin Start: 04/26/23 08:47 Freq: Status: Active Protocol: Document 05/06/23 08:07 SAK (Rec: 05/06/23 09:47 SAK [id number]) Skin Assessment Incisional Assessment Incision Appearance/Comments well healed, decreased scar mobility PT-OP-K Range of Motion Start: 04/26/23 08:47 Freq: Status: Active Protocol: Document 05/06/23 08:07 SAK (Rec: 05/09/23 15:25 SAK [id number]) Shoulder Goniometric Range of Motion Shoulder Measured in Degrees Left Active Flexion 155 Extension 20 Abduction 150 Horizontal Abduction 75 External Rotation at 45 degrees 50 Abduction Right Active Shoulder ROM WFL Yes PT-OP-N Lymphedema Start: 04/26/23 08:47 Freq: Status: Active Protocol: Document 07/13/23 14:37 SAK (Rec: 07/13/23 15:22 [facility] [id number]) Lymphedema Measurements Upper Extremity Circumference Measurements Left Affected MCP 19.2 cm Dorsum of Hand 21.7 cm Wrist 19.7 cm 5 cm From Wrist Crease 19.8 cm 10 cm From Wrist Crease 23 cm 15 cm From Wrist Crease 26.6 cm 20 cm From Wrist Crease 26.7 cm 25 cm From Wrist Crease 27.5 cm 30 cm From Wrist Crease 27.8 cm 35 cm From Wrist Crease 30.6 cm 40 cm From Wrist Crease 33.5 cm 45 cm From Wrist Crease 34.3 cm Elbow Joint 26.8 cm - 102.9 108.6 PT-OP-Q Treatments Start: 04/26/23 08:47 Freq: Status: Active Protocol: Document 07/13/23 14:37 SAK (Rec: 07/13/23 15:29 SAK [id number]) Lymphedema Treatment Compression Garment Assessment Compression Garment Assessment Details Has obtained size M gauntlet with improved fit. Has compression sleeve. Has tried a couple sizes of swell spots but hasn't found right size yet. Patient Education Other Instruction in set up and use of Airos 6 sequential pneumatic pump with ArmPlus sleeve. Patient demonstrated good understanding, was issued to her for home use. PT-OP-R Modalities Start: 04/26/23 08:47 Freq: Status: Active Protocol: Document 06/29/23 10:26 [facility] (Rec: 06/29/23 10:38 [facility] [id number]) Compression Pump Treatment Treatment Location Left Arm Pressure Amount (mmHg) (mmHG) 35 Treatment Tolerance Good Treatment Comments Patient education during pump regarding compression options, contacting insurance regarding potential coverage. Also STM left breast and incision during pump PT-OP-T Assessment and Plan Start: 04/26/23 08:47 Freq: Status: Active Protocol: Document 07/13/23 14:37 [facility] (Rec: 07/13/23 15:22 [facility] [id number]) Physical Therapy Assessment Goals Four Impairment dec left UE ROM with left chest soft tissue tightness Short Term Goal (STG) Patient to be instructed in HEP and self-massage 06/09/23: ongoing ex instruction and progression 07/13/23: goal met STG Duration goal met Shelter Goal (LTG) Patient to be independent in exercises and self-massage and demonstrate left shoulder ROM WNL to allow her to perform all usual activities LTG Duration 08/17/23 Three Impairment pain subaxillary region Impairment interrupts sleep Shelter Goal (LTG) Decrease pain sufficient to allow patient to sleep through the night without waking due to pain 06/09/23: goal progress 07/13/23: pain level decreased to 3/10 with improved sleep noted LTG Duration 08/17/23 Two Impairment decreased scar mobility and tissue fibrosis left breast Bung Dropper Goal (LTG) Improve scar mobility left to WNL and decrease tissue fibrosis left breast from moderate to minimal 06/09/23: goal progress, feel will benefit highly from swell spot but hasnpt obtained yet 07/13/23: goal progress, still working to obtain most comfortable size Swell Spot for improved compression and scar mobilization LTG Duration 08/17/23 One Impairment lymphedema left UE and subaxillary area Short Term Goal (STG) Patient to be instructed in all aspects of lymphedema care to include skin care, elevation, manual lymphatic drainage, lymphedema exercises , and compression 06/09/23: goal met STG Duration goal met Shelter Goal (LTG) Decrease lymphedema to a stable level (no increase or decrease greater than 1 cm over the course of 1 week) and patient to be independent with all aspects of lymphedema care including obtaining appropriate compression garments LTG Duration 08/12/23 Assessment Summary Assessment Patient demonstrated good understanding of use of Airos 6 compression pump with ArmPlus sleeve. issued to her for home use. Paperwork completed. Patient has follow -up with PT in a few weeks to assure compliance with self- care program, problem solve any additional issues. Physical Therapy Plan Frequency and Duration Frequency of Treatment 2 visits Duration of treatment (weeks) 12 Plan of Care Start Date 07/13/23 Plan of Care End Date 08/17/23 Therapeutic Interventions Therapeutic Interventions Home Exercise Program, Lymphedema Management,Manual Therapy,Patient/Caregiver Education,Self-Care/Home Management,Soft Tissue Mobilization,Taping, Therapeutic Exercises Next Visit Focus/Plan Next Note Type Treatment Note Next Visit Plan Follow up to answer any questions, assure compliance with all aspects of lymphedema care. ASsess compression garments. Take circumferential measurements. Anticipate discharge to self- care at that time pending any other PT needs related to lymphedema.
--- NOTE | 2023-07-13 16:45 | PT.OPPOC ---
Physical, Occupational & Speech Therapy At [facility] Current Diagnoses Malignant neoplasm of unspecified site of left female breast (07/13/23) Lymphedema, not elsewhere classified (07/13/23) Visit Care Team Role Provider Type Ania Fagan PA-C Family Provider Advanced [employer] End Sewer Primary Care Provider Specialty: Medical Address: [address], [address] Email: Sheldon Rosario MD Attending Provider Non-Staff Referring Provider Specialty: Medical Address: [address] [place] [address], [place], [address] Email: Plan Of Care PT-OP-T Assessment and Plan Start: 04/26/23 08:47 Freq: Status: Active Protocol: Document 07/13/23 14:37 SAK (Rec: 07/13/23 15:22 SAK [id number]) Physical Therapy Assessment Goals Four Impairment dec left UE ROM with left chest soft tissue tightness Short Term Goal (STG) Patient to be instructed in HEP and self-massage 06/09/23: ongoing ex instruction and progression 07/13/23: goal met STG Duration goal met Residential Goal (LTG) Patient to be independent in exercises and self-massage and demonstrate left shoulder ROM WNL to allow her to perform all usual activities LTG Duration 08/17/23 Three Impairment pain subaxillary region Impairment interrupts sleep Support Team Assoc Goal (LTG) Decrease pain sufficient to allow patient to sleep through the night without waking due to pain 06/09/23: goal progress 07/13/23: pain level decreased to 3/10 with improved sleep noted LTG Duration 08/17/23 Two Impairment decreased scar mobility and tissue fibrosis left breast Support Team Assoc Goal (LTG) Improve scar mobility left to WNL and decrease tissue fibrosis left breast from moderate to minimal 06/09/23: goal progress, feel will benefit highly from swell spot but hasnpt obtained yet 07/13/23: goal progress, still working to obtain most comfortable size Swell Spot for improved compression and scar mobilization LTG Duration 08/17/23 One Impairment lymphedema left UE and subaxillary area Short Term Goal (STG) Patient to be instructed in all aspects of lymphedema care to include skin care, elevation, manual lymphatic drainage, lymphedema exercises , and compression 06/09/23: goal met STG Duration goal met Residential Goal (LTG) Decrease lymphedema to a stable level (no increase or decrease greater than 1 cm over the course of 1 week) and patient to be independent with all aspects of lymphedema care including obtaining appropriate compression garments LTG Duration 08/12/23 Assessment Summary Assessment Patient demonstrated good understanding of use of Airos 6 compression pump with ArmPlus sleeve. issued to her for home use. Paperwork completed. Patient has follow -up with PT in a few weeks to assure compliance with self- care program, problem solve any additional issues. Physical Therapy Plan Frequency and Duration Frequency of Treatment 2 visits Duration of treatment (weeks) 12 Plan of Care Start Date 07/13/23 Plan of Care End Date 08/17/23 Therapeutic Interventions Therapeutic Interventions Home Exercise Program, Lymphedema Management,Manual Therapy,Patient/Caregiver Education,Self-Care/Home Management,Soft Tissue Mobilization,Taping, Therapeutic Exercises Next Visit Focus/Plan Next Note Type Treatment Note Next Visit Plan Follow up to answer any questions, assure compliance with all aspects of lymphedema care. ASsess compression garments. Take circumferential measurements. Anticipate discharge to self- care at that time pending any other PT needs related to lymphedema. Plan of Care Dates Plan of Care Start Date 07/13/23 Plan of Care End Date 08/17/23 Electronically Signed by: Kay Hunt, PT 07/13/23 1144 If you are in agreement with this Plan of Care, please return a signed and dated copy. I have reviewed this Plan of Care and certify that the skilled therapy services above are required to meet the patient?s needs. Physician Signature Date Printed Name and Credentials Clinical Instructor Signature Printed Name and Credentials
--- NOTE | 2024-09-26 09:54 | PT.OPDS ---
Current Diagnoses Malignant neoplasm of unspecified site of left female breast (07/13/23) Lymphedema, not elsewhere classified (07/13/23) Visit Care Team Role Provider Type Ania Fagan PA-C Family Provider Advanced [employer]er Primary Care Provider Specialty: Medical Address: [address] [place], [address] Email: Sheldon Rosario MD Attending Provider Non-Staff Referring Provider Specialty: Medical Address: [address] [place] [address], [place], [address] Email: Visit Number Visit Number 6 Discharge Summary PT-OP-B Current Condition Start: 04/26/23 08:47 Freq: Status: Active Protocol: Document 07/13/23 14:37 SAK (Rec: 07/13/23 15:22 SAK [id number]) Current Condition History of Current Condition Onset Date Current Complaints left hand swelling History of Current Condition invasive lobular carcinoma left, s/p partial mastectomy with axillary dissection and radiation left breast finished July 2022, now on Letrozol., has had 2 episodes of left hand swelling after walking her dog holding onto the leash with left hand and dog pulling 5-6 months after surgery. Patient is right handed. Also reports left UE feels achy, heavy, and nerve pain and swelling under armpit . Still has numbness and tingly left fingers. Tried managing on her own, bought sleeve off [employer], hasn't seemed to help. No usual exercise except dog walking. Reports hasn't done any scar massage on mastectomy scar PT-OP-C Subjective Start: 04/26/23 08:47 Freq: Status: Active Protocol: Document 07/13/23 14:37 SAK (Rec: 07/13/23 15:22 SAK [id number]) OP-PT Subjective Patient Comments Patient Comments Still working on getting correct swell spot size that works for her. Got better fitting gauntlet (M), Wearing regular sports bra with swell spot. Lateral trunk continues to be the most sore. PT-OP-J Posture/Palpation/Skin Start: 04/26/23 08:47 Freq: Status: Active Protocol: Document 05/06/23 08:07 SAK (Rec: 05/06/23 09:47 [facility] [id number]) Skin Assessment Incisional Assessment Incision Appearance/Comments well healed, decreased scar mobility PT-OP-K Range of Motion Start: 04/26/23 08:47 Freq: Status: Active Protocol: Document 05/06/23 08:07 SAK (Rec: 05/09/23 15:25 SAK [id number]) Shoulder Goniometric Range of Motion Shoulder Left Active Flexion 155 Extension 20 Abduction 150 Horizontal Abduction 75 External Rotation at 45 degrees 50 Abduction Right Active Shoulder ROM WFL Yes PT-OP-N Lymphedema Start: 04/26/23 08:47 Freq: Status: Active Protocol: Document 07/13/23 14:37 SAK (Rec: 07/13/23 15:22 SAK [id number]) Lymphedema Measurements Upper Extremity Circumference Measurements Left Affected MCP 19.2 cm Dorsum of Hand 21.7 cm Wrist 19.7 cm 5 cm From Wrist Crease 19.8 cm 10 cm From Wrist Crease 23 cm 15 cm From Wrist Crease 26.6 cm 20 cm From Wrist Crease 26.7 cm 25 cm From Wrist Crease 27.5 cm 30 cm From Wrist Crease 27.8 cm 35 cm From Wrist Crease 30.6 cm 40 cm From Wrist Crease 33.5 cm 45 cm From Wrist Crease 34.3 cm Elbow Joint 26.8 cm - 102.9 108.6 PT-OP-T Assessment and Plan Start: 04/26/23 08:47 Freq: Status: Active Protocol: Document 09/26/24 09:53 SAK (Rec: 09/26/24 09:54 [facility] Laptop) Physical Therapy Plan Discharge Physical Therapy Discharge Reasons No Longer Attending PT
== END | disposition home or self-care (01) ==
LOC: PHYS 05-06 08:04
PROVIDERS: Family Provider Physician Assistant; PCP Physician Assistant; Referring Provider Radiology Radiation Oncology; Visit Provider Radiology Radiation Oncology
DX: C50.912 Malignant neoplasm of unspecified site of left female breast (principal); I89.0 Lymphedema, not elsewhere classified
CPT/HCPCS: 29584; 97140; 97162; 97535

== ENCOUNTER → 2025-04-04 17:13 | Outpatient (CLI) | payer OTHER, SELFPAY ==
--- NOTE | 2025-04-04 17:15 | DI.MG.S_ITS ---
MM screening mammo BI: 04/04/2025. BI-RADS: 0
== END ==
PROVIDERS: Family Provider Physician Assistant; PCP Physician Assistant; Referring Provider Physician Assistant; Visit Provider Physician Assistant
DX: Z12.31 Encounter for screening mammogram for malignant neoplasm of breast (principal); R92.333 Mammographic heterogeneous density, bilateral breasts; Z85.3 Personal history of malignant neoplasm of breast; Z80.3 Family history of malignant neoplasm of breast
CPT/HCPCS: 77063; 77067

== ENCOUNTER → 2025-04-23 13:10 | Outpatient (CLI) | payer OTHER, SELFPAY ==
--- NOTE | 2025-04-23 13:11 | DI.MG.S_ITS ---
MM diagnostic mammo unilat LT, US breast LT limited: 04/23/2025 BI-RADS: 3 CLINICAL: 64-year old female for left diagnostic mammogram and left diagnostic breast ultrasound that is a recall from screening on 04/04/2025. No Tyrer-Cuzick risk score calculation due to the patient's personal history of breast cancer. Patient reports a history of left breast carcinoma diagnosed at age 62. Status-post left lumpectomy with radiation therapy and hormonal therapy. No first-degree family history of breast cancer. Current reported family history of breast cancer: paternal aunt's daughter. The patient had a prior left breast biopsy. PRIOR EXAMS 04/04/2025, 03/16/2024, 03/15/2023, 04/20/2022, 04/13/2022, 03/16/2022, 03/04/2022, 02/17/2022. MAMMOGRAPHY TECHNIQUE: 2D and 3D (tomosynthesis) digital mammographic views obtained, with additional images as needed for full coverage. Current study was also evaluated with a Computer Aided Detection (CAD) system. ULTRASOUND TECHNIQUE Real-time aleman scale imaging of the area of clinical interest was performed with image documentation. TARGETED Left Breast Ultrasound: Real-time ultrasound exam was performed focused to area of clinical and/or imaging concern. DENSITY Left: C. The breast is heterogeneously dense, which may obscure small masses. MAMMOGRAPHY FINDINGS Left: MLO only, Lower, Middle depth: Correlating with findings on screening mammogram, there is an asymmetry seen only on one view. This likely represents superimposed fibroglandular tissue. ULTRASOUND FINDINGS Left: Lower Hemisphere: The area from 4 to 8 o'clock, 5 cm from the nipple was scanned by the technologist. There is no sonographic abnormality to account for imaging concern on mammography. IMPRESSION: Left (Asymmetry): MLO only, Lower, Middle depth * Probably Benign. RECOMMENDATIONS Left: MLO only, Lower, Middle depth * Six month followup with diagnostic mammography. COMMENTS: Findings and recommendations were conveyed to the patient during today's evaluation. OVERALL ASSESSMENT CATEGORY BI-RADS-3: Probably Benign. ELECTRONICALLY SIGNED: Abby Zacarias M.D. on 04/23/2025 at 04:35:07 PM PT Interpreting Station ID: [id number]
== END ==
LOC: MAMMO 13:11
PROVIDERS: Family Provider Physician Assistant; PCP Physician Assistant; Referring Provider Physician Assistant; Visit Provider Physician Assistant
DX: R92.8 Other abnormal and inconclusive findings on diagnostic imaging of breast (principal); R92.332 Mammographic heterogeneous density, left breast; Z85.3 Personal history of malignant neoplasm of breast; Z80.3 Family history of malignant neoplasm of breast
CPT/HCPCS: 76642; 77065; G0279